=== PATIENT | female | born 1945 | race Caucasian/White ===

== ENCOUNTER 2021-03-25 10:28 | Outpatient (CLI) | payer OTHER, SELFPAY ==
--- NOTE | ~2021-03-25 | MR_ITS ---
EXAMINATION: MR knee LT wo con DATE: 03/25/2021 11:48 INDICATION: Left knee pain. TECHNIQUE: Magnetic resonance imaging (MRI) of the left knee was performed without intravenous contra st. Sequences included axial PD-weighted FS FSE, coronal PD-weighted FSE and PD-weighted FS FSE, sagi ttal PD-weighted FSE, and sagittal T2-weighted FS FSE. COMPARISON: Left knee radiographs 12/21/2020 FINDINGS: Medial compartment: There is a complex tear involving body and posterior horn of medial meniscus. There is full-thickness cartilage loss of tibial condyle involving the anterior, medial, and central articular surface with cortical remodeling and mild subchondral edema-like marrow signal intensity. There is full-thickness cartilage loss of femoral condyle involving the central and posterior articular surface with cortical remodeling and mild subchondral edema-like marrow signal intensity. Osteophytes are noted. Lateral compartment: Lateral meniscus is normal. There is shallow partial-thickness cartilage loss of tibial condyle invol ving the medial, lateral, and posterior articular surface. There is cartilage surface irregularity of femoral condyle. There are tiny marginal osteophytes. Patellofemoral compartment: There is deep partial thickness cartilage loss of patellar medial facet with mild subchondral edema-l saeed marrow signal intensity. There is cartilage surface irregularity of patellar lateral facet. There is partial-thickness cartilage loss of trochlea, deep at the central articular surface. Osteophytes are noted. Ligaments and tendons: The anterior and posterior cruciate ligaments are normal. Medial collateral ligament is normal. There are changes of prior sprain of fibular collateral ligament characterized by thickening and increased signal intensity. There is mild patellar tendinopathy. Fluid: There is a small knee joint effusion. 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 There is mild superficial patell ar bursitis. IMPRESSION: 1. Severe chondrosis of medial compartment, moderate chondrosis of patellofemoral compartment, and mi ld chondrosis of lateral compartment. 2. Tear of medial meniscus. 3. Small knee joint effusion. 4. Large Leigh's cyst. Reviewed, dictated and finalized at location A. IMPRESSION: 1. Severe chondrosis of medial compartment, moderate chondrosis of patellofemor al compartment, and mild chondrosis of lateral compartment. 2. Tear of medial meniscus. 3. Small knee joint effusion. 4. Large Leigh's cyst.
== END 2021-03-25 10:29 | disposition home or self-care (01) ==
LOC: ANHIMG 10:35
PROVIDERS: PCP Family Medicine; Visit Provider Orthopaedic Surgery
DX: M25.462 Effusion, left knee (principal); M71.22 Synovial cyst of popliteal space [Baker], left knee; S83.242A Other tear of medial meniscus, current injury, left knee, initial encounter; X58.XXXA Exposure to other specified factors, initial encounter
CPT/HCPCS: 73721

== ENCOUNTER 2021-05-02 09:58 | Outpatient (CLI) | payer OTHER, SELFPAY ==
[2021-05-02 11:18] LABS: Basophils Absolute Auto 0.1 K/mm3 (0.0-0.1); Eosinophils Absolute Auto 0.2 K/mm3 (0-0.3); Eosinophils Percent Auto 2.6 % (0-4.4); Hematocrit 38.8 % (37.0-47.0); Hemoglobin 13.1 g/dL (12.0-15.0); Immature Granulocyte Absolute 0.02 K/mm3 (0.00-0.031); Immature Granulocyte Percent A 0.3 % (0-0.5); Lymphocytes Percent Auto 26.3 % (18.3-44.2); Mean Corpuscular HGB Conc 33.8 g/dl (32-36); Mean Corpuscular Hemoglobin 31.1 pg (26-34); Mean Corpuscular Volume 92.2 fl (80-100); Mean Platelet Volume 9.9 fl (7.4-10.4); Monocytes Absolute Auto 0.5 K/mm3 (0.1-0.6); Monocytes Percent Auto 6.1 % (2.6-8.5); Neutrophils Absolute Auto 5.1 K/mm3 (1.3-6.7); Neutrophils Percent Auto 63.7 % (45.5-73.1); Platelet Count Result 326 k/mm3 (150-375); Red Blood Count 4.21 M/mm3 (4.2-5.4)
[2021-05-02 11:33] LABS: INR 0.9; Prothrombin Time 12.2 Seconds (11.1-14.7)
[2021-05-02 11:44] LABS: Anion Gap 6 mmol/L (8-16); Blood Urea Nitrogen 20 mg/dL (7-17); Calcium 9.2 mg/dL (8.4-10.2); Carbon Dioxide 32 mmol/L (22-30); Chloride 100 mmol/L (98-107); Estimated Glomerular Filt Rate > 60; Glucose 93 mg/dL (65-110); Potassium 3.7 mmol/L (3.4-5.0); Sodium 138 mmol/L (137-145)
== END 2021-05-02 09:59 | disposition home or self-care (01) ==
LOC: ANHSURGERY 10:00
PROVIDERS: Anesthesiology; PCP Family Medicine; Visit Provider Orthopaedic Surgery
DX: Z01.812 Encounter for preprocedural laboratory examination (principal); M17.12 Unilateral primary osteoarthritis, left knee; Z51.81 Encounter for therapeutic drug level monitoring; Z79.899 Other long term (current) drug therapy; N18.30 Chronic kidney disease, stage 3 unspecified
CPT/HCPCS: 36415; 80048; 85025; 85610; 85730; 86850; 86900; 86901; 87081

== ENCOUNTER 2021-06-01 08:34 | Outpatient (CLI) | payer OTHER, SELFPAY ==
--- NOTE | ~2021-06-01 | MR_ITS ---
EXAMINATION: MR lumbar spine wo con EXAM DATE: 06/01/2021 09:15 INDICATION: M54.16 - Radiculopathy, lumbar region . Right radiculopathy. TECHNIQUE: Multi-sequential, multiplanar MR images of the lumbar spine were obtained without contrast . Sagittal T1, T2, T2 fat saturation images. Axial T2 weighted images. Correlation is made to lumba r x-ray 04/18/2021. FINDINGS: There is mild lumbar levoscoliosis. There is moderate to severe disc disease from L1 throug h L5, moderate at L5-S1. There is 2-3 mm anterolisthesis L3 on L4 and L5 on S1. The conus medullaris terminates at the T12-L1 level and has normal signal intensity and morphology. Degenerative endplate signal changes mostly at L4-5. Paraspinal soft tissue is unremarkable. Level by level evaluation: T12-L1: Disc does not extend beyond the endplate margin. Facet arthropathy: Mild. Neural foraminal stenosis: No stenosis. Central canal stenosis: No stenosis. L1-L2: There is a moderate diffuse disc bulge. Facet arthropathy: Mild to moderate. Neural foraminal stenosis: Mild to moderate right, mild left. Central canal stenosis: Mild. L2-L3: There is a moderate diffuse disc bulge. Facet arthropathy: Moderate. Neural foraminal stenosis: Moderate to severe right, mild to moderate left. Central canal stenosis: Mild to moderate. L3-L4: There is a moderate to large diffuse disc bulge. Facet arthropathy: Severe. Ligamentum flavum enlargement. Neural foraminal stenosis: Moderate bilateral. Central canal stenosis: Severe. L4-L5: There is a moderate diffuse disc bulge asymmetric to the right Facet arthropathy: Moderate. Neural foraminal stenosis: Moderate to severe left, mild to moderate right. Central canal stenosis: Moderate. L5-S1: There is a moderate diffuse disc bulge. Facet arthropathy: Moderate. Neural foraminal stenosis: Mild to moderate left, mild right. Central canal stenosis: Mild. IMPRESSION: 1. L3-4 grade 1 anterolisthesis, severe central canal stenosis. 2. Neural foramen most narrowed on the right at L2-3 and on the left at L4-5. 3. Mild lumbar dextroscoliosis. Reviewed, dictated and finalized at location D.
== END 2021-06-01 08:35 | disposition home or self-care (01) ==
PROVIDERS: PCP Family Medicine; Visit Provider Orthopaedic Surgery
DX: M54.16 Radiculopathy, lumbar region (principal); M43.16 Spondylolisthesis, lumbar region; M41.86 Other forms of scoliosis, lumbar region
CPT/HCPCS: 72148

== ENCOUNTER 2021-06-12 13:15 | Outpatient (RCR) | payer OTHER, SELFPAY ==
--- NOTE | 2021-05-03 16:19 | PTOPEVAL ---
Thank you for referring Bushra Manzano to [facility].? The patient is scheduled to be seen for therapy? 2 x/week for 5 weeks. Please review, sign, date and return this plan of care MELLY. I agree with and certify that the following plan of care is medically necessary. Referring Physician Date Attending Provider: Dexter Lopez MD Diagnosis sciatica and OA of knee Onset 3 months Additional Evaluation Detail She is planned for left partial knee replacement . She is also referred to therapy due to back pain. MRI knee: Severe chondrosis of medial compartment, moderate chondrosis of patellofemoral compartment, and mild chondrosis of lateral compartment. 2. Tear of medial meniscus. 3. Small knee joint effusion. 4. Large Leigh's cyst. Subjective Information She reports severe back pain Query Text:As Reported By Patient/ which increases with sit<> Family stand motion. 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 Improved sypmtoms with longer walking. Reports pain starts in buttock and travels into post leg region. She uses ices for the pain. Left knee: Reports increased knee pain for 20 yrs. She had arthroscopic surgery x 2. Increased pain with single leg stance, negiating steps, squating, tranfers from all surfaces. She wears a brace on the left knee with walking. Diagnostic Tests X-Rays For This Problem Yes: degenerative scoliosis appreciated in the mid to lower lumbar spine. Moder Previous Treatments Previous Treatments For This Problem 5 yrs ago for knee Pain Assessment Self Report Pain Assessment Lower Back Reported Pain Level 0 Pain Description Heavy,Numbness,Radiating, Tingling Pain Radiation Right Arm Pain Frequency
--- NOTE | 2021-05-31 09:44 | PTOPEVAL ---
Physical Therapy Progress Note Thank you for referring Bushra Manzano to [facility] [place]Note 2[place]?She has attended 8 therapy visits to address his back. See summary below for progress with therapy. She is progressing towards therapy goals. The patient is scheduled to be seen for therapy? 2x/week for 4 weeks. Please review, sign, date and return this plan of care MELLY. I agree with and certify that the following plan of care is medically necessary. Referring Physician Date Attending Provider: Dexter Lopez MD Problem Diagnosis sciatica and OA of knee Onset 3 months Additional Evaluation Detail Her left partial knee replacement planned for has been cancelled 2x's due to issued with her back. She is to have a MRI on 06/01/21/ MRI knee: Severe chondrosis of medial compartment, moderate chondrosis of patellofemoral compartment, and mild chondrosis of lateral compartment. 2. Tear of medial meniscus. 3. Small knee joint effusion. 4. Large Leigh's cyst. Subjective Information Reports minor changes in her Query Text:As Reported By Patient/ ability to perform daily task. Family She is performing HEP 2x/day. She reports severe back pain in the morning with difficulty getting out of bed. Back cont to limit sit<>stand motion due to buttock and right leg/ foot pain. 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 Improved symptoms with longer walking. Reports pain starts in buttock and travels into post leg region. She wears a brace on the left knee with walking. Pain Assessment Self Report Pain Assessment Lower Back Reported Pain Level 0 Pain Description Heavy,Numbness,Radiating, Tingling Pain Frequency Chronic,Continuous Lowest Pain Intensity 0 Greatest Pain Intensity 10 Pain Aggravating Factors Bending,Exercise/Activity, Prolonged Position,Sitting Cervical and Lumbar ROM Lumbar ROM Lumbar
--- NOTE | 2021-06-13 11:41 | PCPTNOTE ---
Admitting Provider: Attending Provider: Dexter Lopez MD Patient:Bushra Manzano Date of :1945 Physical Therapy Discharge Note Patient has not returned for any further treatments since 06/12/2021 per her request due to following up with neurologist for her back. Therefore he will be discharged at this time. Patient?s initial visit was on 05/03/2021 09:30 and she had a total of 11 visits. The goals have been partially met at this time due to limited visits due to progression of her back symptoms. Thank you for referring this patient to [facility]. Please review, sign, date and return this discharge summary MELLY. I have been updated about the patient's current status and I agree with discharge from the above service at this time. Referring Physician Date
== END 2021-06-13 15:14 | disposition home or self-care (01) ==
LOC: ANHPT 13:15
PROVIDERS: PCP Family Medicine; Visit Provider Orthopaedic Surgery
DX: M47.816 Spondylosis without myelopathy or radiculopathy, lumbar region (principal)
CPT/HCPCS: 97014; 97110; 97140; 97162; 97530; G0283

== ENCOUNTER → 2021-07-23 11:27 | Outpatient (CLI) | payer OTHER, SELFPAY ==
--- NOTE | ~2021-07-23 | XR_ITS ---
EXAMINATION: XR chest 2V DATE: 07/23/2021 12:03 INDICATION: Personal history of nicotine dependence. TECHNIQUE: Frontal and lateral views of the chest were obtained. COMPARISON: Chest single view 10/30/2018 FINDINGS: The chest demonstrates clear lungs without pneumonia, pleural effusion, or pneumothorax. Th e heart size is normal. IMPRESSION: 1. No acute cardiopulmonary disease. Reviewed, dictated and finalized at location A. 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
== END ==
PROVIDERS: PCP Family Medicine; Visit Provider Family Medicine
DX: Z01.811 Encounter for preprocedural respiratory examination (principal); Z87.891 Personal history of nicotine dependence
CPT/HCPCS: 71046

== ENCOUNTER 2021-11-08 08:41 | Outpatient (CLI) | payer OTHER, SELFPAY ==
[2021-11-08 10:30] LABS: Basophils Absolute Auto 0.1 K/mm3 (0.0-0.1); Eosinophils Absolute Auto 0.2 K/mm3 (0-0.3); Eosinophils Percent Auto 2.5 % (0-4.4); Hematocrit 39.7 % (37.0-47.0); Hemoglobin 13.6 g/dL (12.0-15.0); Immature Granulocyte Absolute 0.01 K/mm3 (0.00-0.031); Immature Granulocyte Percent A 0.1 % (0-0.5); Lymphocytes Absolute Auto 1.88 K/mm3 (0.9-3.2); Lymphocytes Percent Auto 26.6 % (18.3-44.2); Mean Corpuscular HGB Conc 34.3 g/dl (32-36); Mean Corpuscular Volume 93.4 fl (80-100); Mean Platelet Volume 9.7 fl (7.4-10.4); Monocytes Absolute Auto 0.5 K/mm3 (0.1-0.6); Monocytes Percent Auto 6.7 % (2.6-8.5); Neutrophils Absolute Auto 4.5 K/mm3 (1.3-6.7); Neutrophils Percent Auto 63.1 % (45.5-73.1); Platelet Count Result 375 k/mm3 (150-375); Red Blood Count 4.25 M/mm3 (4.2-5.4); White Blood Count 7.1 K/mm3 (4.5-10.0)
[2021-11-08 10:43] LABS: Prothrombin Time 12.7 Seconds (11.1-14.7)
[2021-11-08 10:44] LABS: Partial Thromboplastin Time 25.8 SECONDS (22.3-36.8)
== END 2021-11-08 08:42 | disposition home or self-care (01) ==
PROVIDERS: Anesthesiology; PCP Family Medicine; Visit Provider Orthopaedic Surgery
DX: Z01.812 Encounter for preprocedural laboratory examination (principal); M17.12 Unilateral primary osteoarthritis, left knee; N18.30 Chronic kidney disease, stage 3 unspecified; Z51.81 Encounter for therapeutic drug level monitoring; Z79.899 Other long term (current) drug therapy
CPT/HCPCS: 36415; 85025; 85610; 85730; 86850; 86900; 86901; 87081

== ENCOUNTER 2021-11-13 00:46 | Day surgery (SDC) | payer OTHER, SELFPAY ==
--- NOTE | 2021-11-08 08:44 | PC.NURSE ---
Report to the Outpatient Waiting Room, entrance under the green pavilion located off [facility], at time _0630_ on date _11/13/21_. OR Time: _0830_. - You and your visitor will be asked a series of questions to screen for COVID 19 for your protection. - A mask is required within the hospital. One visitor will be allowed to accompany the patient into the hospital. Patients visitor will be instructed to remain with patient at all times or leave the building. VISITING HOURS 10AM-7PM, USE MAIN ENTRANCE - ONE VISITOR ONE TIME A DAY Preoperative COVID Testing Requirements: NONE Patients may have clear liquids (water, carbonated beverages, clear teas, apple juice) until 3 hours prior to surgery (0530 AM) with a maximum of 20 ounces. - No food from midnight until time of surgery Take the following medications with a SIP of water the morning of surgery: _TYLENOL IF NEEDED_ Medications to discontinue per ANESTHESIA - ALL VITAMINS AND HERBAL SUPPLEMENTS, 3 DAYS PRIOR TO SURGERY -Date to take last dose on 11/09/21 Please no make-up, nail georgian, hairspray, perfume, deodorant, or body powder the day of surgery. No jewelry (including any body piercings) or valuables the day of surgery, leave them at home. Please take a shower or bath the night before, or the morning of, surgery with an antibacterial soap. Wear comfortable, loose fitting clothing. - Jewelry must be removed prior to entering the operating room. Rings and piercings that are not removed may be cut off. - The hospital will not accept responsibility for valuables. - Please leave all valuables, including medications, at home the day of surgery. If you are going home after surgery, a licensed armored car driver must drive you home. - NO public transportation without another adult. - We recommend that an adult stay with you for 24 hours following discharge. - We also recommend that you do not drive, make important decision, drink alcoholic beverages, or take any drugs that were not prescribed by your health care provider for at least 24 hours after your discharge time. Follow any additional instructions given to you from DR. BARCLAY Instructions given to ____PT and asked if any additional questions and then verbalized understanding. Patient advised to call surgeon office or pre surgery nurse liaisonSABINE [phone] if any additional questions.
[2021-11-08 09:15] VITALS: BP 142/70; PULSE 74; RESP 18; TEMP 36.6; O2SAT 98; BMI 24.9
--- NOTE | 2021-11-12 15:22 | WPDANESEPPF ---
Anes - Initial Pre Proc Eval Procedure: Operation Date: 11/13/21 07:30 Proposed Procedures p Left Unicompartmental Knee Arthroplasty - Dexter Lopez MD Date/Time: 11/12/21 15:22 Surgeon: Dexter Lopez MD Pre Op Diagnosis: left knee oa Patient Data Age: 76 Gender: F Height: 1.68 m Weight: 70.1 kg Last Vital Signs Temp 36.6 C 11/08/21 09:15 Pulse 74 11/08/21 09:15 Resp 18 11/08/21 09:15 BP 142/70 H 11/08/21 09:15 Pulse Ox 98 11/08/21 09:15 Allergies Allergy/AdvReac Type Severity Reaction Status Date / Time latex Allergy Intermediate Rash Verified 11/13/21 06:12 Home Medications Medication Instructions Recorded Confirmed Type aspirin 81 mg tablet,delayed 81 mg PO HS 08/09/19 11/13/21 History release ferrous sulfate 134 mg (27 mg 134 mg PO QAM 08/09/19 11/13/21 History iron) tablet vit C 250 mg-vit E 90 mg-zinc 40 1 tablet PO BID cap 08/09/19 11/13/21 History mg-copper 1 pw-rzsvsx-yubsfy capsule vitamin E 200 unit capsule 200 unit PO QAM 12/21/20 11/13/21 History mirabegron 25 mg tablet,extended 25 mg PO QAM 04/25/21 11/13/21 History release 24 hr ascorbic acid (vitamin C) [Vitamin 1 g PO QAM 05/02/21 11/13/21 History C] calcium 600 mg PO QAM 05/02/21 11/13/21 History omega-3 fatty acids-vitamin E 1 cap QAM 05/02/21 11/13/21 History [Fish Oil] acetaminophen [Tylenol Ex Str 1,000 mg PO BID PRN 05/25/21 11/13/21 History Arthritis Pain] omeprazole 20 mg capsule,delayed 20 mg PO QAM 11/06/21 11/13/21 History release hydrochlorothiazide 25 mg PO QAM 11/08/21 11/13/21 History pravastatin 40 mg PO QAM 11/08/21 11/13/21 History tolterodine 2 mg PO QAM 11/08/21 11/13/21 History Patient hx anesthesia problems: none Family hx anesthesia problems: none Results Review: All pre-operative results and documents have been reviewed as part of the pre-operative evaluation. [facility] Past Medical History Medical History (Updated 11/12/21 @ 15:23 by Taj Reich MD) Allergies Arthritis Arthritis, lumbar spine Cataract Chronic kidney disease, stage 3 (moderate) Degenerative arthritis of knee, bilateral HTN (hypertension) IBS (irritable bowel syndrome) Mixed hyperlipidemia Osteoarthritis of left knee Surgical History Surgical History H/O arthroscopic knee surgery left knee, Dr. Lopez , 2008 History of appendectomy History of cholecystectomy Family History Family History Mother Family history of Alzheimer's disease Father Family history of heart disease in male family member before age 55 Other Family history of cardiovascular disease Hypertension Social History Social History Smoking packs per day: 0.5 Smoking cigarettes per day: 10.0 Years smoked: 3 Smoking pack-years: 1.50 Smoking status: Former smoker Tobacco type: cigarettes Second hand tobacco smoke exposure: No Smoking end date: 08/18/1965 Additional smoking assessment comments: PT STATES QUITTING 1965 OR COUPLE YEARS PRIOR TO Alcohol intake: never Substance use: never Substance use type: does not use Living arrangements: alone Additional living arrangements comments: lives at [facility] 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
--- NOTE | 2021-11-12 15:24 | WPDANESPNB ---
Anes - Peripheral Nerve Block Date/Time: 11/12/21 15:24 I have discussed with the patient/family/POA the placement of a peripheral nerve block for post-operative pain management, including associated risks, benefits, complications, and side effects. Alternative methods of post-operative analgesia were detailed. Questions were solicited and answers provided to the satisfaction of the patient/family/POA. Time-Out: A pre-procedural Time-Out was completed immediately before starting the procedure and confirmed: Patient Identification, Site, Procedure, Patient Position and the Availability of Requisite Equipment. Clinical Indications: Acute post-operative pain management requested by the operative surgeon. Nerve Block Insertion Note Anes-nerve block: adductor canal left Patient position: supine Skin prep: chlorhexidine Needle: 22 gauge, stimulating, insulated echogenic needle. Needle length: 80 mm Technique: ultrasound Technique comment: in plane Injectate: bupivacaine 0.5% with epi 5 mcg/ml (30cc) Observations: tolerated well Complications: none Procedure start time:: 725 Procedure end time:: 730
[2021-11-13] VITALS (10 sets, daily range): BP systolic 110–157; BP diastolic 57–83; PULSE 66–84; RESP 10–20; TEMP 36–37.4; O2SAT 95–100
--- NOTE | ~2021-11-13 | XR_ITS ---
EXAMINATION: KNEE ONE/TWO VIEW-RIGHT DATE: 11/13/2021 10:23 INDICATION: Postoperative evaluation following left knee medial unicompartmental arthroplasty TECHNIQUE: Anteroposterior and lateral views of the left knee were obtained. COMPARISON: 12/23/2020 FINDINGS: Left knee medial unicompartmental arthroplasty appears well seated and in near anatomic alignment. N o fractures identified. Expected postoperative subcutaneous and intra-articular gas. IMPRESSION: 1. Left knee medial unicompartmental arthroplasty, negative for postoperative purposes. Reviewed, dictated and finalized at location A. IMPRESSION: 1. Left knee medial unicompartmental arthroplasty, negative for postoperative p urposes.
[2021-11-13] MEDS: ACETAMINOPHEN 500 MG TABLET 1000 MG PO (06:25)
--- NOTE | 2021-11-13 07:10 | WPDHPUPDATE1 ---
History and Physical Update Update Date/Time: 11/13/21 07:10 History and Physical has been reviewed, including an updated exam of the patient. There are NO changes in the patient's condition. Risks, benefits, and alternatives have been discussed and questions answered. Patient agrees to proceed with procedure.
[2021-11-13] MEDS: LACTATED RINGERS 1,000 ML 30 ML IV CONT ×2 (07:12→10:10)
[2021-11-13] MEDS: TRANEXAMIC ACID 1,000MG/ISO100 1,000 MG/100 ML BAG 200 MG IVPB (07:13)
[2021-11-13] MEDS: ceFAZolin 2 GM/D5W 50 ML 2 GM/50 ML BAG IVPB (07:33)
--- NOTE | 2021-11-13 09:52 | W.PM.PROC2 ---
Procedure Note - Detailed Date of Procedure 11/13/21 Pre-op Diagnosis left knee oa Post-op Diagnosis Same Procedure Performed Left knee unicompartmental replacement Surgeon Dexter Lopez MD Hydrochloric Manufacturing Supervisor Ramon Hui Anesthesia General and Regional Description of Procedure The patient was identified and the proper site identified. In the preop holding area the anesthesia team performed a left lower extremity block. She was then taken to the operating room and transferred to the OR table placing her supine taking care to pad his torso and extremities. After general anesthetic induction and intubation. a nonsterile tourniquet was placed high on the left thigh. The extremity was positioned, prepped, and draped in the usual sterile fashion. The extremity was exsanguinated and the tourniquet was inflated to 300 mmHg remaining up for approximately 60 minutes. An anterior midline incision was made and sharp dissection carried down through the subcutaneous tissue to the extensor mechanism. A modified medial parapatellar arthrotomy was performed. The articular and meniscal cartilage of the lateral compartment was inspected and noted to be in excellent shape. Anterior and posterior cruciate ligaments were in continuity. There were extensive degenerative changes medial compartment and milder patellofemoral changes. The marginal osteophytes were removed from the notch and the medial aspect of the medial femoral condyle, and the remaining meniscal tissue was removed. The femur was sized to a small. With the appropriate spoon and tibial guide, a tibial resection was made. This was sized to AA. Using the mill, the flexion and extension gaps were balanced. A trial reduction was undertaken. The range of motion of the knee was noted to be from full extension to 120 ? of flexion with excellent stability through range of motion. The polyethylene insert tracked nicely. The trial components were removed. The real small femur and size AA tray for the left knee were cemented into place. The knee was held in about 30? of flexion while the cement cured. The tourniquet was released and excess cement was removed from the joint. Hemostasis was carried out. The knee was flushed with a copious amount of irrigation. After trialing, the appropriate real size 5 insert for the femoral component was inserted and the stability again assessed. The knee was noted to be stable as it was taken through range of motion. The periarticular tissues were injected with 60 milliliters of arthroplasty solution. The extensor mechanism was repaired with two Vicryl and 0 looped PDS suture, the subcu with 3-0 Monocryl, 2-0 Quill and tissue adhesive for the skin. A sterile dressing was applied. The patient tolerated the procedure well, was awakened, extubated, and taken to recovery room in stable condition. Estimated Blood Loss 100 Tourniquet Time 60 Drains No Packing No Pathology None sent Complications No immediate complications Condition Stable Disposition PACU
--- NOTE | 2021-11-13 11:51 | ADMGEN ---
This patient, Bushra Manzano, was admitted to 2 Medical Room 253-01. Patient/family oriented to hospital policies and general routines including ID bracelet, bed and alarms, visiting hours, pain management, procedures, bathroom and other care routines, personal items, smoking policy, room service/diet, and visiting hours. Report received from Licha in PACU. Information on how to activate the Rapid Response Team has been discussed. Patient/Family are encouraged to report perceived risks to care and to ask questions if they do not understand what they are told or what they should do.
[2021-11-13] MEDS: SODIUM CHLORIDE 0.9% IV 1,000 ML 125 ML IV CONT (12:07)
[2021-11-13] MEDS: HYDROcodone/acetaminophen (*CRX) 7.5-325 MG TABLET 1 TAB PO ×3 (13:02→20:27)
[2021-11-13] MEDS: SENNA/DOCUSATE SODIUM TABLET 2 TAB PO (16:49)
[2021-11-13] MEDS: OPTI-GEN TAB 1 TABLET PO (16:49)
[2021-11-13] MEDS: CELECOXIB 200 MG CAPSULE PO (16:49)
[2021-11-13] MEDS: FAMOTIDINE 20 MG TABLET PO (20:27)
[2021-11-14 00:22] VITALS: BP 120/67; PULSE 64; RESP 16; TEMP 37; O2SAT 96
[2021-11-14] MEDS: HYDROcodone/acetaminophen (*CRX) 7.5-325 MG TABLET 1 TAB PO ×4 (00:35→12:21)
[2021-11-14 04:12] VITALS: BP 115/64; PULSE 63; RESP 16; TEMP 36.6; O2SAT 97
--- NOTE | 2021-11-14 08:05 | PM.DS ---
DS: Admitting Diagnosis Discharge Date November 14, 2021 Admitting Diagnosis Left knee osteoarthritis DS: Discharge Diagnosis Discharge Diagnosis (1) Status post left unicompartmental knee replacement: Code(s): Z96.652 - Presence of left artificial knee joint Status: Acute Assessment and Plan: 76-year-old female postop day 1 after unicompartmental knee replacement by Dr. Lopez. She is having most of her pain in the back of the knee on examination this morning. Otherwise, she is doing very well. Plan for her to receive therapy prior to discharge today. She has a follow-up appointment scheduled in 2 weeks for wound check. She will be given a prescription for oxycodone for pain relief and Zofran for nausea. She will be on 2 weeks of Xarelto for DVT prophylaxis. She has this prescription already. She will also take scheduled Tylenol for pain. DS: Summary Hospital Course Reason for hospitalization: Observation after outpatient procedure Hospital Course: 76-year-old female with left knee osteoarthritis underwent unicompartmental knee replacement by Dr. Lopez. After this procedure she was admitted for observation. Unremarkable overnight stay. The incision site is clean and dry on exam this morning. She will receive therapy prior to discharge today. Status at Discharge Functional status at discharge: uses cane/walker Overall status at discharge: patient is progressing back to baseline Time Spent with Patient Time attestation: Total time spent providing and/or coordinating discharge services: Time spent: Less than 30 minutes Exam Const: General: comfortable and no acute distress Eyes: General: appearance normal, both eyes and all related structures Resp: Effort & Inspection: normal respiratory effort GI: Inspection: non-distended GI Palp: No Tenderness to palpation present (GI) Neuro: Sensory Exam: normal sensation Extrem: Other: Exam of the left knee shows a clean and dry surgical dressing. She is able to wiggle her toes and foot without difficulty. She denies any numbness down the leg. With some exertion, she is able to fully extend the knee to 0? extension. Neurovascular status unremarkable. Calves negative. Psych: Mental Status: mental status grossly normal Discharge Plan Discharge Patient Disposition: Home, Self-Care Discharge Instructions: 3 times daily for 20 minutes each time, reclining in bed with ice packs over the incision and a pillow underneath the calf of the affected leg, not under the knee. Your wound is glued so it is okay to get into the shower and get the wound wet in two days. Be sure to get up and move around several times daily but do not overdue it. Remember to maintain your 50% weight-bearing status for 6 weeks with a walker. Be sure to read through all the information that came from my office and the hospital. Most of the answers you will need can be found in that material. Call the office with any questions that you cannot find answers to, or concerns you may have. You have a prescription of Xarelto for 14 days. If you do not have this please call our office immediately. After the Xarelto is completed, start taking one coated 325 mg aspirin daily and do this for four more weeks. Take the arthritis formula Tylenol 650 mg tablet on an 8 hour schedule. A good 8 hour schedule is: 6:00 AM, 2:00 PM, and 10:00 PM. You may take the prescribed pain medication along with the Tylenol; it is not to be taken instead of the tylenol. I would like for you to take the Tylenol on a schedule for 2-3 weeks. Once the Xarelto is completed, if you wish to supplement your pain regimen with prua-gna-fovhzue anti-inflammatory such as Advil or Aleve, that is fine. Follow the label instructions. Do not take this medication if you have an allergy to NSAIDS. Please call [facility] at as soon as possible to verify follow up appointment to be seen in 2 weeks. Also, call the office with any or
[2021-11-14] MEDS: PRAVASTATIN SODIUM 20 MG TABLET 40 MG PO (08:38)
[2021-11-14] MEDS: VITAMIN E 100 UNIT CAPSULE 200 UNIT PO (08:38)
[2021-11-14] MEDS: ASCORBIC ACID 500 MG TABLET 1000 MG PO (08:39)
[2021-11-14] MEDS: SENNA/DOCUSATE SODIUM TABLET 2 TAB PO (08:39)
[2021-11-14] MEDS: RIVAROXABAN 10 MG TABLET PO (08:39)
[2021-11-14] MEDS: FAMOTIDINE 20 MG TABLET PO (08:39)
[2021-11-14] MEDS: CELECOXIB 200 MG CAPSULE PO (08:39)
[2021-11-14] MEDS: polyethylene glycoL 3350 17 GM POWD.PACK PO (08:39)
[2021-11-14] MEDS: MIRABEGRON 25 MG ER TABLET PO (08:39)
[2021-11-14] MEDS: CALCIUM CARBONATE (OSCAL) 500 MG TABLET PO (08:39)
[2021-11-14] MEDS: PANTOPRAZOLE 40 MG TABLET PO (08:39)
[2021-11-14] MEDS: OPTI-GEN TAB 1 TABLET PO (08:40)
[2021-11-14] MEDS: hydroCHLOROthiazide 25 MG TABLET PO (08:40)
[2021-11-14] MEDS: FERROUS SULFATE DRIED 142 MG TABCR PO (12:21)
[2021-11-14 14:00] VITALS: BP 106/87; PULSE 77; RESP 18; TEMP 37; O2SAT 98
== END 2021-11-14 14:55 | disposition home or self-care (01) ==
LOC: ANHSURGERY 05:54 → ANH2MED 11:30
PROVIDERS: PCP Family Medicine; Visit Provider Orthopaedic Surgery
PROC: (CPT 27446; principal; 2021-11-13 07:30)
DX: M17.12 Unilateral primary osteoarthritis, left knee (principal); G89.18 Other acute postprocedural pain; I12.9 Hypertensive chronic kidney disease with stage 1 through stage 4 chronic kidney disease, or unspecified chronic kidney disease; N18.30 Chronic kidney disease, stage 3 unspecified; E78.2 Mixed hyperlipidemia; K58.9 Irritable bowel syndrome, unspecified; Z79.82 Long term (current) use of aspirin; Z87.891 Personal history of nicotine dependence
CPT/HCPCS: 27446; 64447; 36415; 73560; 85025; 85610; 85730; 86850; 86900; 86901; 87081; 97110; 97116; 97161; 97165; 97530; 97535; A9270; C1713; C1776; J0171; J0690; J1100; J1170; J2250; J2270; J2370; J2405; J2704; J2795; J3010; J7030; J7120

== ENCOUNTER 2022-01-17 12:10 | Observation (INO) | payer OTHER, SELFPAY ==
--- NOTE | 2022-01-15 14:20 | PC.NURSE ---
Report to the Outpatient Waiting Room, entrance under the green pavilion located off [facility], at time __1200 on date _01/16/22 . OR Time: __1400 . - You and your visitor will be asked a series of questions to screen for COVID 19 for your protection. - Only one visitor is allowed at this time. - The patient visitor is requested to leave or wait in car when not with patient. - A mask is required within the hospital. Patients may have clear liquids (water, carbonated beverages, clear teas, apple juice) until 3 hours prior to surgery with a maximum of 20 ounces. - No food from midnight until time of surgery - Infants may have breast milk until 4 hours before surgery, infant formula 6 hours prior to surgery. - Children will be allowed to drink immediately following surgery. If applicable, please bring a bottle or sippy cup to assist with drinking. Juice, water, soda, and popsicles are readily available. For infants on formula, please bring formula the day of surgery. Pacifiers are allowed. Take the following medications with a SIP of water the morning of surgery: NONE Medications to discontinue per physician NONE Date to take last dose Please no make-up, nail luxembourgish, hairspray, perfume, deodorant, or body powder the day of surgery. No jewelry (including any body piercings) or valuables the day of surgery, leave them at home. Please take a shower or bath the night before, or the morning of, surgery with an antibacterial soap. Wear comfortable, loose fitting clothing. Children are encouraged to wear pajamas. - Jewelry must be removed prior to entering the operating room. Rings and piercings that are not removed may be cut off. - The hospital will not accept responsibility for valuables. - Please leave all valuables, including medications, at home the day of surgery. If you are going home after surgery, a licensed laundry route driver must drive you home. - NO public transportation without another adult. - We recommend that an adult stay with you for 24 hours following discharge. - We also recommend that you do not drive, make important decision, drink alcoholic beverages, or take any drugs that were not prescribed by your health care provider for at least 24 hours after your discharge time. For Pediatric surgeries, we recommend two adults accompany the child home (only one inside the building at this time). Follow any additional instructions given to you from your surgeon. If you or anyone in your household have experienced Covid symptoms in the past week, please notify your surgeon or the nurse liaison at the phone number below for possible testing. Telephone instructions given to __PATIENT and asked if any additional questions and then verbalized understanding. Patient advised to call surgeon office or pre surgery nurse liaison [phone] if any additional questions.
[2022-01-15 14:25] VITALS: BMI 23.6
[2022-01-16] VITALS (13 sets, daily range): BP systolic 120–143; BP diastolic 60–75; PULSE 67–87; RESP 10–19; TEMP 36.4–36.6; O2SAT 95–100; BMI 23.8
--- NOTE | 2022-01-16 12:51 | WPDANESEPPF ---
Anes - Initial Pre Proc Eval Procedure: Operation Date: 01/16/22 14:00 Proposed Procedures p Debridement and Closure Left Knee Wound, Possible Wound Vac - Dexter Lopez MD Date/Time: 01/16/22 12:51 Surgeon: Dexter Lopez MD Pre Op Diagnosis: left knee wound, eschar Patient Data Age: 77 Gender: F Height: 1.68 m Weight: 66.25 kg Allergies Allergy/AdvReac Type Severity Reaction Status Date / Time latex Allergy Intermediate Rash Verified 01/16/22 12:45 Home Medications Medication Instructions Recorded Confirmed Type aspirin 81 mg tablet,delayed 81 mg PO HS 08/09/19 01/16/22 History release ferrous sulfate 134 mg (27 mg 134 mg PO QAM 08/09/19 01/16/22 History iron) tablet (High Potency Iron) vit C 250 mg-vit E 90 mg-zinc 40 1 tablet PO BID 08/09/19 01/16/22 History mg-copper 1 kb-[id number]-ispqso capsule (PreserVision AREDS-2) vitamin E 200 unit capsule 200 unit PO QAM 12/21/20 01/16/22 History mirabegron 25 mg tablet,extended 25 mg PO QAM 04/25/21 01/16/22 History release 24 hr (Myrbetriq) ascorbic acid (vitamin C) 1,000 mg 1 g PO QAM 05/02/21 01/16/22 History tablet (Vitamin C) calcium 600 mg capsule 600 mg PO QAM 05/02/21 01/16/22 History omega-3 fatty acids-vitamin E 1 cap QAM 05/02/21 01/16/22 History 1,000 mg capsule acetaminophen 500 mg tablet 1,000 mg PO Q8H PRN Pain 05/25/21 01/16/22 History omeprazole 20 mg capsule,delayed 20 mg PO QAM 11/06/21 01/16/22 History release hydrochlorothiazide 25 mg tablet 25 mg PO QAM 11/08/21 01/16/22 History pravastatin 40 mg tablet 40 mg PO QAM 11/08/21 01/16/22 History tolterodine 2 mg capsule,extended 2 mg PO QAM 11/08/21 01/16/22 History release 24 hr aspirin 325 mg tablet 325 mg PO DAILY 12/06/21 01/16/22 History Patient hx anesthesia problems: none Family hx anesthesia problems: none Results Review: All pre-operative results and documents have been reviewed as part of the pre-operative evaluation. [facility] Past Medical History Medical History Allergies Arthritis Arthritis, lumbar spine Cataract Chronic kidney disease, stage 3 (moderate) Degenerative arthritis of knee, bilateral HTN (hypertension) IBS (irritable bowel syndrome) Mixed hyperlipidemia Osteoarthritis of left knee Surgical History Surgical History H/O arthroscopic knee surgery left knee, Dr. Lopez , 2008 History of appendectomy History of cholecystectomy S/P laminectomy L3-L4 Family History Family History Mother Family history of Alzheimer's disease Father Family history of heart disease in male family member before age 55 Other Family history of cardiovascular disease Hypertension Social History Social History Smoking packs per day: 0.5 Smoking cigarettes per day: 10.0 Years smoked: 4 Smoking pack-years: 2.00 Smoking status: Former smoker Tobacco type: cigarettes Second hand tobacco smoke exposure: No Smoking end date: 08/18/65 Additional smoking assessment comments: PT STATES QUITTING 1966 OR COUPLE YEARS PRIOR TO Alcohol intake: never Substance use: never Substance use type: does not use Living arrangements: alone Additional living arrangements comments: lives at [facility] 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
[2022-01-16 13:26] LABS: Hematocrit 37.5 % (37.0-47.0); Hemoglobin 12.7 g/dL (12.0-15.0)
[2022-01-16] MEDS: LACTATED RINGERS 1,000 ML 30 ML IV CONT (13:33)
[2022-01-16] MEDS: KETOROLAC 15 MG/ML VIAL (*BKC) IV PUSH (13:36)
[2022-01-16] MEDS: SCOPOLAMINE 1.5 MG PATCH TRANSDERM (13:36)
[2022-01-16] MEDS: ACETAMINOPHEN 500 MG TABLET 1000 MG PO (13:36)
[2022-01-16 13:37] LABS: Anion Gap 8 mmol/L (8-16); Blood Urea Nitrogen 25 mg/dL (7-17); Calcium 9.3 mg/dL (8.4-10.2); Carbon Dioxide 28 mmol/L (22-30); Chloride 99 mmol/L (98-107); Estimated CRCL calculation 47 ml/min; Estimated Glomerular Filt Rate > 60; Glucose 94 mg/dL (65-110); Potassium 3.2 mmol/L (3.4-5.0); Sodium 135 mmol/L (137-145)
[2022-01-16 13:40] LABS: Prothrombin Time 12.9 Seconds (11.1-14.7)
[2022-01-16 13:41] LABS: Partial Thromboplastin Time 27.3 SECONDS (22.3-36.8)
--- NOTE | 2022-01-16 13:47 | SUR.PREOP ---
SHAVE NOT DONE, PT HAS ABDULLAHI WRAP ON LT KNEE WOUND. PT STATES WOUND IS BLEEDING.
--- NOTE | 2022-01-16 13:56 | SUR.PREOP ---
SPOKE WITH DR BARCLAY REGARDING SHAVE, NO SHAVE NEEDED
--- NOTE | 2022-01-16 13:58 | WPDHPUPDATE1 ---
History and Physical Update Update Date/Time: 01/16/22 13:58 History and Physical has been reviewed, including an updated exam of the patient. There are NO changes in the patient's condition. Risks, benefits, and alternatives have been discussed and questions answered. Patient agrees to proceed with procedure.
[2022-01-16] MEDS: ceFAZolin 2 GM/D5W 50 ML 2 GM/50 ML BAG IVPB ×2 (14:02→22:14)
--- NOTE | 2022-01-16 15:22 | P.OP_ITS ---
Procedure Note - Detailed Date of Procedure 01/16/22 Pre-op Diagnosis left knee wound, eschar Post-op Diagnosis Same Procedure Performed Debridement eschar left knee wound with application of wound VAC Surgeon Dexter Lopez MD [employer] Description of Procedure The patient was identified and proper site identified. She was taken back to the operating room transferring her to the or table placing her supine taking care to pad her torso and extremities. After general anesthetic induction and intubation a nonsterile tourniquet was placed high on her left thigh. Left lower extremity was prepped and draped in usual sterile fashion. Extremity was exsanguinated and the tourniquet was inflated to 250 millimeters of mercury remaining up for about 9 minutes. The eschar was excised. The original scar was used to extend the incision proximally allowing for access to the entire subcutaneous space. There was no communication with the knee joint proper. Curette was used to remove any devitalized tissue from within the wound. It was also scrubbed with a dilute Betadine solution and a sterile scrub sponge. The edges of the eschar were freshened up. The tourniquet was released. There was quite a bit of healthy bleeding tissue throughout the wound. The wound was irrigated with sterile saline solution. The proximal aspect of the wound which had been extended was reapproximated with 3-0 nylon suture. The wound VAC was applied with the help of the wound care nurse and that hooked up to the suction device. She tolerated the procedure well. She was awakened, extubated taken to recovery area in stable condition. There were no known intraoperative complications. Estimated blood loss 5 milliliters. She received perioperative antibiotics. Tourniquet Time 9 Packing Yes (Wound VAC) Complications No immediate complications Disposition PACU
[2022-01-16] MEDS: SENNA/DOCUSATE SODIUM TABLET 2 TAB PO (18:22)
[2022-01-16] MEDS: KETOROLAC 15 MG/ML VIAL (*BKC) IM (18:23)
[2022-01-16] MEDS: OPTI-GEN TAB 1 TABLET PO (18:23)
--- NOTE | 2022-01-16 19:02 | ADMGEN ---
This patient, Bushra Manzano, was admitted to Medical Room 246-. Patient/family oriented to hospital policies and general routines including ID bracelet, bed and alarms, visiting hours, pain management, procedures, bathroom and other care routines, personal items, smoking policy, room service/diet, and visiting hours. Information on how to activate the Rapid Response Team has been discussed. Patient/Family are encouraged to report perceived risks to care and to ask questions if they do not understand what they are told or what they should do.
[2022-01-17] VITALS (7 sets, daily range): BP systolic 102–134; BP diastolic 51–67; PULSE 68–78; RESP 16–18; TEMP 36.3–36.8; O2SAT 95–100
[2022-01-17] MEDS: KETOROLAC 15 MG/ML VIAL (*BKC) IM ×2 (00:58→05:52)
[2022-01-17] MEDS: ceFAZolin 2 GM/D5W 50 ML 2 GM/50 ML BAG IVPB ×2 (05:52→13:19)
[2022-01-17] MEDS: VITAMIN E 100 UNIT CAPSULE 200 UNIT PO (08:28)
[2022-01-17] MEDS: PRAVASTATIN SODIUM 20 MG TABLET 40 MG PO (08:28)
[2022-01-17] MEDS: CALCIUM CARBONATE (OSCAL) 500 MG TABLET PO (08:28)
[2022-01-17] MEDS: ASPIRIN 325 MG TABLET PO (08:28)
[2022-01-17] MEDS: OMEGA 3 POLYUNSAT FATTY ACIDS 1 GM CAP PO (08:29)
[2022-01-17] MEDS: MIRABEGRON 25 MG ER TABLET PO (08:29)
[2022-01-17] MEDS: polyethylene glycoL 3350 17 GM POWD.PACK PO (08:29)
[2022-01-17] MEDS: PANTOPRAZOLE 40 MG TABLET PO (08:29)
[2022-01-17] MEDS: SENNA/DOCUSATE SODIUM TABLET 2 TAB PO ×2 (08:29→17:08)
[2022-01-17] MEDS: OPTI-GEN TAB 1 TABLET PO ×2 (08:29→17:09)
[2022-01-17] MEDS: ASCORBIC ACID 500 MG TABLET 1000 MG PO (08:29)
[2022-01-17] MEDS: hydroCHLOROthiazide 25 MG TABLET PO (08:29)
--- NOTE | 2022-01-17 10:47 | PCNSR ---
On 01/17/22, the student, Charley Tran, provided care and completed [facility] documentation on this patient. I have reviewed the student's documentation and agree with the findings.
--- NOTE | 2022-01-17 12:42 | PM.PNORT ---
Progress Note: A&P Assessment and Plan (1) Eschar of lower leg: Code(s): R23.4 - Changes in skin texture Status: Acute Plan Plan to mobilize the patient today. Will be going home with home health tomorrow. Wound VAC will be changed by the wound care nurses tomorrow. Proximal sutures can be removed by Home Health in two weeks. Plan Keflex for two weeks. Aspirin for DVT prophylaxis. Time Spent With Patient Time with patient: 15 - 25 minutes Subjective Subjective Date/Time Seen: 01/17/22 12:42 Post Op day: 1 Principal diagnosis: Status post left knee wound debridement Interval history: 69-year-old female postop day one status post left knee wound debridement and placement wound VAC. Doing very well. Quite comfortable. Exam Const: General: cooperative, no acute distress and alert Nutritional Appearance: other Orientation/consciousness: patient oriented x3 Limitations: no limitations Extrem: Other: Exam of the left knee shows wound VAC sealed up nicely. No erythema around the wound. Proximal wound edges well apposed. Neurovascular status left lower extremity intact. Calves negative. Psych: Appearance: grossly normal Mental Status: mental status grossly normal Objective Data Vital Signs Vital Signs: Vital Signs - 24 hr 01/16/22 12:53 01/16/22 15:11 01/16/22 15:25 Temperature 97.8 F 97.5 F L Pulse Rate 87 71 67 Respiratory Rate 18 12 13 Blood Pressure 143/75 H 120/66 127/71 Pulse Oximetry 99 100 100 Oxygen Delivery Room Air Simple Face Mask Simple Face Mask Oxygen Flow Rate 8 8 01/16/22 15:40 01/16/22 15:55 01/16/22 16:10 Temperature Pulse Rate 70 71 70 Respiratory Rate 11 L 19 11 L Blood Pressure 143/69 H 130/71 131/68 Pulse Oximetry 100 99 100 Oxygen Delivery Simple Face Mask Room Air Room Air Oxygen Flow Rate 8 01/16/22 16:25 01/16/22 16:35 01/16/22 16:50 Temperature 98 F 97.5 F L Pulse Rate 81 73 76 Respiratory Rate 10 L 16 16 Blood Pressure 120/68 136/60 129/60 Pulse Oximetry 100 100 100 Oxygen Delivery Room Air Oxygen Flow Rate 01/16/22 18:28 01/16/22 21:18 01/16/22 20:00 Temperature 97.6 F Pulse Rate 77 72 Respiratory Rate 16 Blood Pressure 125/62 Pulse Oximetry 99 95 Oxygen Delivery Room Air Room Air Oxygen Flow Rate 01/16/22 22:00 01/16/22 22:20 01/17/22 02:20 Temperature 97.8 F 97.8 F 97.6 F Pulse Rate 72 72 68 Respiratory Rate 18 18 18 Blood Pressure 120/60 120/60 102/56 L Pulse Oximetry 97 97 97 Oxygen Delivery Oxygen Flow Rate 01/17/22 06:00 01/17/22 09:16 01/17/22 08:35 Temperature 98.0 F Pulse Rate 70 Respiratory Rate 18 Blood Pressure 127/51 L Pulse Oximetry 97 Oxygen Delivery Room Air Room Air Oxygen Flow Rate 01/17/22 10:20 01/17/22 10:55 Temperature 98.3 F Pulse Rate 78 Respiratory Rate 18 Blood Pressure 134/67 Pulse Oximetry 99 97 Oxygen Delivery Room Air Oxygen Flow Rate Intake/Output Intake/Output: Intake & Output 01/14/22 01/15/22 01/16/22 01/17/22 23:59 23:59 23:59 23:59 Intake Total 350 / 350 540 / 540 Output Total 200 / 200 625 / 625 Balance 150 / 150 -85 / -85 Meds/Results Medications: Active Medications Generic Name Dose Route Start Last Admin Trade Name Freq PRN Reason Stop Dose Admin Acetaminophen 1,000 mg 01/16/22 16:35 Acetaminophen 500 Mg Tablet PO Q8H PRN mild pain Hydrocodone Bitart/Acetaminophen 1 tab 01/16/22 16:35 Hydrocodone/Acetaminophen (*Crx) 5-325 Mg Tablet PO Q3H PRN Pain Rated 4-6 Hydrocodone Bitart/Acetaminophen 2 tab 01/16/22 16:35 Hydrocodone/Acetaminophen (*Crx) 5-325 Mg Tablet PO Q6H PRN Pain Rated 7-10 Ascorbic Acid 1,000 mg 01/17/22 09:00 01/17/22 08:29 Ascorbic Acid 500 Mg Tablet PO 1,000 mg QAM RUBIA Administration Aspirin 325 mg 01/17/22 09:00 01/17/22 08:28 Aspirin 325 Mg Tablet PO 325 mg DAILY RUBIA Administration Calcium Carbona
[2022-01-17] MEDS: FERROUS SULFATE DRIED 142 MG TABCR PO (13:20)
[2022-01-18 05:09] VITALS: BP 135/70; PULSE 80; RESP 18; TEMP 36.7; O2SAT 97
--- NOTE | 2022-01-18 07:27 | PM.DS ---
DS: Admitting Diagnosis Discharge Date 01/18/2022 Admitting Diagnosis Eschar lower left leg DS: Discharge Diagnosis Discharge Diagnosis (1) Eschar of lower leg: Code(s): R23.4 - Changes in skin texture Status: Acute Assessment and Plan: 77-year-old female postop day 1 after debridement of eschar tissue and placement of wound VAC. uneventful overnight stay. Plan to have the dressing changed today prior to discharge. She will have home health see her starting next week on Friday and Friday for dressing changes. She will also be started on Keflex for 2 weeks. She has an appointment scheduled on January 30 for wound check. We will plan to take her sutures out at this time. She can be full weight-bearing on the extremity with while using a cane. She will continue to take 325 mg aspirin for DVT prophylaxis. DS: Summary Hospital Course Reason for hospitalization: Observation after debridement of lower left leg and placement of wound vac Hospital Course: Patient was brought back to OR on Friday01/16/2022 for debridement of eschar tissue of the left lower leg. During the debridement, wound VAC was placed. She has been seen by therapy and is doing very well with this. The dressing will be changed today prior to her discharge. She will also have home health come for dressing changes starting next week. Status at Discharge Functional status at discharge: uses cane/walker Overall status at discharge: patient is progressing back to baseline Time Spent with Patient Time attestation: Total time spent providing and/or coordinating discharge services: Time spent: Less than 30 minutes Exam Const: General: comfortable and no acute distress Eyes: General: appearance normal, both eyes and all related structures Resp: Effort & Inspection: normal respiratory effort Skin: General skin exam: normal color and no rashes or lesions noted Extrem: Other: Exam of the left lower extremity reveals a clean and dry wound VAC dressing. There is slight sanguinous to serosanguineous fluid draining from the wound. She is able to wiggle her toes and denies any radiation pain away from the surgical site. Calves negative. Neurovascular status unremarkable. Psych: Mental Status: mental status grossly normal DS: Data Procedures/Treatments: Debridement eschar tissue of left lower leg - 01/16/2022. Discharge Plan Discharge Attending physician on discharge: Dexter Lopez Discharging Clinician: Thomas Grajeda Patient Disposition: Home Health Service Activity: other - see discharge instructions Diet: as tolerated Wound Care Instructions: other - see discharge instructions Discharge Instructions: Per Care Coordination: [facility] will contact you prior to their first visit. [facility] RN will follow for wound care. [facility] can be contacted at [phone]. For Dr. Lopez: Please keep the dressing clean and dry. You have a scheduled follow appt on 01/30/22 for wound check and suture removal. [facility] will see you on // starting next week for dressing changes. You can be full weight bearing with a cane. Patient Instructions: Antibiotic Form Stand Alone Forms: General Discharge Information, General Discharge Instructions Follow-up/Referrals: Dexter Lopez MD [Physician] - Thomas Grajeda, ENROLLMENT SPECIALIST-C [Advanced Practice Nurse] - Discharge Medications: New cephalexin 750 mg capsule 750 mg PO Q12H Qty: 30 1RF Continued Myrbetriq 25 mg tablet extended release 24 hr 25 mg PO QAM PreserVision AREDS-2 [phone] gb-lpfl-nd-mg capsule 1 tablet PO BID High Potency Iron 134 mg (27 mg iron) tablet 134 mg PO QAM vitamin E 200 unit capsule 200 unit PO QAM omeprazole 20 mg capsule,delayed release(DR/EC) 20 mg PO QAM aspirin 325 mg tablet 325 mg PO DAILY calcium 600 mg Capsule 600 mg PO QAM asc
[2022-01-18] MEDS: ASCORBIC ACID 500 MG TABLET 1000 MG PO (08:36)
[2022-01-18] MEDS: PRAVASTATIN SODIUM 20 MG TABLET 40 MG PO (08:37)
[2022-01-18] MEDS: ASPIRIN 325 MG TABLET PO (08:37)
[2022-01-18] MEDS: OPTI-GEN TAB 1 TABLET PO (08:37)
[2022-01-18] MEDS: CALCIUM CARBONATE (OSCAL) 500 MG TABLET PO (08:37)
[2022-01-18] MEDS: OMEGA 3 POLYUNSAT FATTY ACIDS 1 GM CAP PO (08:37)
[2022-01-18] MEDS: MIRABEGRON 25 MG ER TABLET PO (08:38)
[2022-01-18] MEDS: VITAMIN E 100 UNIT CAPSULE 200 UNIT PO (08:38)
[2022-01-18] MEDS: hydroCHLOROthiazide 25 MG TABLET PO (08:38)
[2022-01-18] MEDS: SENNA/DOCUSATE SODIUM TABLET 2 TAB PO (08:38)
[2022-01-18] MEDS: PANTOPRAZOLE 40 MG TABLET PO (08:38)
[2022-01-18] MEDS: polyethylene glycoL 3350 17 GM POWD.PACK PO (08:39)
[2022-01-18] MEDS: FERROUS SULFATE DRIED 142 MG TABCR PO (10:24)
[2022-01-18 10:25] VITALS: BP 114/66; PULSE 68; RESP 16; TEMP 36.2; O2SAT 97
== END 2022-01-18 14:19 | disposition home health service (06) ==
LOC: ANHSURGERY 12:35 → ANH2MED 01-18 07:43
PROVIDERS: Admitting Provider Orthopaedic Surgery; PCP Family Medicine; Visit Provider Nurse Practitioner
PROC: (CPT 11042; principal; 2022-01-16 14:00)
DX: T81.31XA Disruption of external operation (surgical) wound, not elsewhere classified, initial encounter (principal); R23.4 Changes in skin texture; Y83.8 Other surgical procedures as the cause of abnormal reaction of the patient, or of later complication, without mention of misadventure at the time of the procedure; Z96.652 Presence of left artificial knee joint; I12.9 Hypertensive chronic kidney disease with stage 1 through stage 4 chronic kidney disease, or unspecified chronic kidney disease; N18.30 Chronic kidney disease, stage 3 unspecified; E78.2 Mixed hyperlipidemia; K58.9 Irritable bowel syndrome, unspecified; Z79.82 Long term (current) use of aspirin; Z87.891 Personal history of nicotine dependence
CPT/HCPCS: 11042; 36415; 80048; 85014; 85018; 85610; 85730; 87081; 97110; 97161; 97530; A9270; G0378; J0690; J1100; J1885; J2370; J2405; J2704; J3010; J7120

== ENCOUNTER 2022-05-07 14:46 | Outpatient (CLI) | payer OTHER, SELFPAY ==
--- NOTE | ~2022-05-07 | MM_ITS ---
EXAMINATION: MM screening [facility] BI w mirta HISTORY: Screening mammogram TECHNIQUE: Craniocaudal and mediolateral oblique 3-D tomosynthesis images were obtained and synthetic 2-D images were generated. CAD analysis was submitted and interpreted. COMPARISON: 09/13/2019, 09/12/2018, 08/05/2016 BREAST PARENCHYMAL COMPOSITION: There are scattered areas of fibroglandular density. FINDINGS: There is no suspicious mass, calcification, or architectural distortion to suggest malignan cy in either breast. There has been no suspicious interval change. IMPRESSION: 1. No mammographic evidence of malignancy. 2. Recommend routine screening mammography in one year. BI-RADS Category 1: Negative Reviewed, dictated and finalized at location A.
--- NOTE | ~2022-05-07 | DEXA_ITS ---
Bone Density Report Name: IMAN BURNS Age: 77 Sex: Female Ethnicity: White Date of : 1945 Indication: postmenopausal; screening for osteoporosis; height loss; Referring Provider: LAST LIPSCOMB Study: Bone densitometry was performed. Exam Date: May 07, 2022 Accession number: [id number] Bone Density: Region BMD T-score Z-score Classification AP Spine(L1, L2, L3) 0.884 -1.2 1.3 Osteopenia Femoral Neck (Left) 0.788 -0.6 1.7 Normal Total Hip (Left) 0.766 -1.4 0.5 Osteopenia Femoral Neck (Right) 0.782 -0.6 1.6 Normal Total Hip (Right) 0.803 -1.1 0.8 Osteopenia Total Hip Mean 0.785 -1.3 0.7 Osteopenia World Health Organization criteria for BMD impression classify patients as: Normal (T-score at or above -1.0), Osteopenia (T-score between -1.0 and -2.5), or Osteoporosis (T-score at or below -2.5). 10-year Fracture Risk(1): Major Osteoporotic Fracture 10% Hip Fracture 1.5% Reported Risk Factors: [place] (), Neck BMD=0.788, BMI=25.3 (1) FRAX(R) Version 3.08. Fracture probability calculated for an untreated patient. Fracture probability may be lower if the patient has received treatment. Previous Exams: Region Exam Age BMD T-score BMD Change BMD Change Date g/cm2 vs Baseline vs Previous AP Spine (L1-L3) 05/07/2022 77 0.884 -1.2 -0.015 (-1.7%) -0.021 (-2.3%) 09/12/2018 73 0.905 -1.0 0.006 (0.7%) 0.006 (0.7%) 08/05/2016 71 0.899 -1.1 Total Hip(Left) 05/07/2022 77 0.766 -1.4 -0.039 (-4.8%) -0.132 (-14.7% 09/12/2018 73 0.898 -0.4 0.093 (11.6%)* 0.093 (11.6%)* 08/05/2016 71 0.805 -1.1 Total Hip(Right) 05/07/2022 77 0.803 -1.1 -0.036 (-4.3%) -0.112 (-12.2% 09/12/2018 73 0.915 -0.2 0.076 (9.1%)* 0.076 (9.1%)* 08/05/2016 71 0.839 -0.8 *Denotes significance at 95% confidence level, LSC for AP Spine = 0.022 g/cm2, LSC for Total Hip = 0.027 g/cm2 Clinical Information Provided by Patient: Has used the following medications: Vitamin D, Calcium Patient maximum height was 66.5 Menopause Age: 49 Drinks caffeinated beverages Onset of menses at age 13 Number of children 3 Impression: The patient has low bone mass, based on the Left Total Hip T-score. The patient has an estimated ten-year risk of hip fracture of 1.5% and an estimated ten-year risk of major fracture of 10%, based on the WHO FRAX algorithm. The BMD for the Total Hip(Left) decreased, changing by -14.
== END 2022-05-07 14:47 | disposition home or self-care (01) ==
PROVIDERS: PCP Family Medicine; Visit Provider Family Medicine
DX: Z12.31 Encounter for screening mammogram for malignant neoplasm of breast (principal); Z78.0 Asymptomatic menopausal state; M85.88 Other specified disorders of bone density and structure, other site; M85.851 Other specified disorders of bone density and structure, right thigh; M85.852 Other specified disorders of bone density and structure, left thigh; R29.890 Loss of height
CPT/HCPCS: 77063; 77067; 77080

== ENCOUNTER 2022-06-13 07:21 | Outpatient (RCR) | payer OTHER, SELFPAY ==
[2022-03-15 09:48] VITALS: BMI 23.4
== END 2022-06-13 23:59 | disposition home or self-care (01) ==
LOC: ANHWOC 07:21
PROVIDERS: PCP Family Medicine; Visit Provider Nurse Practitioner
DX: R23.4 Changes in skin texture (principal)
CPT/HCPCS: 99212; 99213; A9270; G0463

== ENCOUNTER 2022-06-27 10:29 | Outpatient (RCR) | payer OTHER, SELFPAY ==
[2022-06-14 00:02] VITALS: BMI 23.4
== END 2022-09-16 09:48 | disposition home or self-care (01) ==
LOC: ANHWOC 10:29
PROVIDERS: PCP Family Medicine; Visit Provider Nurse Practitioner
DX: R23.4 Changes in skin texture (principal)
CPT/HCPCS: 99213; G0463

== ENCOUNTER 2023-08-21 15:23 | Outpatient (CLI) | payer OTHER, SELFPAY ==
--- NOTE | ~2023-08-21 | MM_ITS ---
EXAMINATION: MM screening [facility] BI w mirta HISTORY: Screening mammogram TECHNIQUE: Craniocaudal and mediolateral oblique 3-D tomosynthesis images were obtained and synthetic 2-D images were generated. CAD analysis was submitted and interpreted. COMPARISON: 05/07/2022, 09/13/2019, 09/12/2018 BREAST PARENCHYMAL COMPOSITION: There are scattered areas of fibroglandular density. FINDINGS: No suspicious mass, calcification, or architectural distortion are identified in either lisseth ast to suggest malignancy. There has been no suspicious interval change. IMPRESSION: 1. No mammographic evidence of malignancy. 2. Recommend routine screening mammography in one year. BI-RADS Category 1: Negative Reviewed, dictated and finalized at location A. K RANDER
== END 2023-08-21 15:24 | disposition home or self-care (01) ==
PROVIDERS: PCP Family Medicine; Visit Provider Physician Assistant
DX: Z12.31 Encounter for screening mammogram for malignant neoplasm of breast (principal)
CPT/HCPCS: 77063; 77067

== ENCOUNTER 2025-02-28 15:32 | Outpatient (CLI) | payer OTHER, SELFPAY ==
--- NOTE | ~2025-02-28 | XR_ITS ---
EXAM: XR lumbar spine 2-3V DATE: 02/28/2025 15:50 HISTORY: M54.9 - Dorsalgia, unspecified . COMPARISON: 04/18/2021, images only. FINDINGS: 5 nonrib-bearing lumbar-type vertebral bodies, likely with hypoplastic ribs at T12. Mild s coliosis. Pedicles intact. Laminectomy defect at L3. Stable multilevel mild grade 1 listheses. Verteb ral body heights preserved. Multilevel disc space narrowing and marginal osteophytosis with vacuum ph enomenon at multiple levels. Severe mid and lower lumbar facet hypertrophy/sclerosis. No fracture or dislocation. IMPRESSION: No acute fracture or traumatic malalignment detected in the lumbar spine. Multilevel neva re degenerative disc disease and facet arthropathy. Reviewed, dictated and finalized at location K. IMPRESSION: No acute fracture or traumatic malalignment detected in the lumbar spine. Multilevel severe degenerative disc disease and facet arthropathy.
--- OUTSIDE RECORDS SUMMARY | 2025-02-28 15:36 | XMS_ITS | Clinical Summary ---
Author Organization [facility] Address [address] [place] [address] Care Team Providers Care Rn Homecare Name Role Phone Ayden Olea MD Primary Care Provider [phone] Social History Tobacco Use Types Packs/Day Years Used Date Smoking Tobacco: Never Assessed Comments Unknown Sex and Gender Information Value Date Recorded Sex Assigned at Not on file Legal Sex Female 1:50 PM CDT Gender Identity Not on file Sexual Orientation Not on file Plan of Treatment Health Maintenance Due Date Last Done Comments DTaP, Tdap and Td Vaccines (1 - Tdap) 01/14/1964 Annual Medicare Wellness Visit 01/14/2009 Dexa Scan (General) 01/14/2009 Zoster Vaccines (2 of 3) 05/13/2018 03/18/2018, 11/16 COVID-19 Vaccine ( season) 2024 05/29/2023, 09/22/2022, 01/03/2022, Additional history exists Pneumococcal Vaccine: 50+ Years Completed 06/08/2014, 05/27/2013 RSV Immunization or 60+ Years Completed 05/29/2023 Meningococcal B Vaccine Aged Out No l onger eligible based on patient's age to complete this topic Meningococcal Vaccine Aged Out No alexia charmaine eligible based on patient's age to complete this topic RSV Immunizations Under 20 Months Aged Out No longer eligible based on patient's age to complete this topic Insurance E[employer] Care Teams Rn Homecare Relationship Specialty Start Date End Date Ayden Olea MD [address] [place] [address] PCP - General FAMILY PRACTICE 01/17/24
== END 2025-02-28 15:33 | disposition home or self-care (01) ==
PROVIDERS: PCP Family Medicine; Visit Provider Student in an Organized Health Care Education/Training Program
DX: M51.369 Other intervertebral disc degeneration, lumbar region without mention of lumbar back pain or lower extremity pain (principal); M47.816 Spondylosis without myelopathy or radiculopathy, lumbar region
CPT/HCPCS: 72100

== ENCOUNTER 2025-03-24 14:09 | Outpatient (CLI) | payer OTHER, SELFPAY ==
--- OUTSIDE RECORDS SUMMARY | 2025-03-24 14:12 | XMS_ITS | Clinical Summary ---
Author Organization [facility] Address [address] [place] [address] Care Team Providers Care Combination Machine Tool Operator Name Role Phone Ayden Olea MD Primary Care Provider [phone] Social History Tobacco Use Types Packs/Day Years [...] complete this topic Insurance ESSENCE Care Teams Combination Machine Tool Operator Relationship Specialty Start Date End Date Ayden Olea MD [address] [place] [address] PCP - General FAMILY PRACTICE 01/17/24
--- NOTE | 2025-04-04 08:27 | WPDHOLTEREM ---
Holter/Event Monitor Holter/Event Monitor Date of procedure: 03/24/25 Holter/Event Procedure: 3-7 Day Holter Monitor Indications: Palpitations Conclusion: 1. 6 days and 15 hours holter monitor on 03/24/25. 2. Predominant rhythm is sinus rhythm. HR range 49-179 bpm; average HR 67 bpm. HR at 49 bpm was on 03/28/25 at 6:29 am. 3. There are rare premature supraventricular complexes, rare supraventricular couplets, and rare supraventricular triplets. There are 22 episodes of supraventricular tachycardia with fastest at 179 bpm and longest lasting 15 beats. 4. There are rare premature ventricular complexes and rare ventricular couplets. No ventricular tachycardia. 5. No significant pauses greater than 3 seconds. 6. Patient reports 1 episode of symptoms of lightheadedness, shortness of breath and shaky which demonstrates sinus rhythm at 83 bpm.
== END 2025-03-24 14:10 | disposition home or self-care (01) ==
LOC: ANHCARD 14:10
PROVIDERS: PCP Family Medicine; Visit Provider Physician Assistant
DX: R94.31 Abnormal electrocardiogram [ECG] [EKG] (principal); R07.9 Chest pain, unspecified; R00.2 Palpitations; M50.30 Other cervical disc degeneration, unspecified cervical region
CPT/HCPCS: 93242

== ENCOUNTER 2025-04-14 13:27 | Outpatient (CLI) | payer OTHER, SELFPAY ==
--- OUTSIDE RECORDS SUMMARY | 2025-04-12 11:15 | XMS_ITS | Encounter Summary ---
Author Organization [facility] Address [address] [place] [address] Phone Care Team Providers Care Hadoop Developer Name Role Phone Ayden Oela MD Primary Care Provider Encounter Details Date Type Department Care Team (Late st Contact Info) Description 04/12/2025 11:15 AM CDT Lab [facility] Medicine Endocrinology Metabolism and Lipid [address] [place] [address] [place] [address] SVT (supraventricular tachycardia) Social History Tobacco Use Types Packs/Day Years Used Date Smoking Tobacco: Never Smokeless Tobacco: Never Alcohol Use Standard Drinks/Week Comments Yes 0 (1 standard drink = 0.6 oz pur e alcohol) Very rare alcohol use Comments No Sex and Gender Information Value Date Recorded Sex Assigned at Not on file 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 Gender Identity Not on file Sexual Orientation Not on file documented as of this encounter Plan of Treatment Not on file documented as of this encounter Procedures Procedure Name Priority Date/Time Associated Diagnosis Comments TSH Routine 04/12/2025 11:08 AM CDT SVT (supraventricular tachycardia) MAGNESIUM Routine 04/12/2025 11:08 AM CDT SVT (supraventricular tachycardia) BASIC METABOLIC PANEL Routine 04/12/2025 11:08 AM CDT SVT (supraventricular tachycardia) documented in this encounter Results * TSH (04/12/2025 11:08 AM CDT) TSH (Thyrotropin) 1.66 0.27 - 4.20 uIU/mL [facility] Blood 04/12/2025 11:0 8 AM CDT 04/12/2025 1:02 PM CDT Dawood Gómez MD PhD LAB BLOOD ORDERABLES Fi nal Result [facility] * Basic metabolic panel (04/12/2025 11:08 AM CDT) Glucose 75 64 - 99 mg/dL [facility] Comment: NONFASTING GLUCOSE RANGE = 64-199 mg/dL FASTING GLUCOSE 64 - 99 = NORMAL FASTING GLUCOSE 100 - 125 = IMPAIRED FASTING GLUCOSE FASTING GLUCOSE >=126 = PROVISIONAL DIAGNOSIS OF DIABETES Potassium 3.4 3.3 - 5.1 mmol/L [facility] Creatinine 0.79 0.60 - 1.10 mg/dL [facility] BUN 17 7 - 23 mg/dL [facility] Sodium 142 135 - 145 mmol/L [facility] Chloride 102 95 - 107 mmol/L [facility] CO2 Content 26 21 - 29 mmol/L [facility] Calcium 9.9 8.6 - 10.3 mg/dL [facility] eGFR 75.1 >60.0 mL/min/1.7 3 m2 [facility] Blood 04/12/2025 11:0 8 AM CDT 04/12/2025 1:02 PM CDT Dawood Gómez MD PhD LAB BLOOD ORDERABLES Fi nal Result [facility] * Magnesium (04/12/2025 11:08 AM CDT) Magnesium 2.1 1.6 - 2.6 mg/dL [facility] Blood 04/12/2025 11:0 8 AM CDT 04/12/2025 1:02 PM CDT us Dawood Gómez MD PhD LAB BLOOD ORDERABLES Fi nal Result [facility] documented in this encounter Visit Diagnoses Diagnosis SVT (supraventricular tachycardia) Other specified cardiac dysrhythmias documented in this encounter Care Teams Hadoop Developer Relationship Specialty Start Date End Date Ayden Olea MD [address] [place] [address] PCP - General 10/16/18 documented as of this encounter
--- OUTSIDE RECORDS SUMMARY | 2025-04-14 13:33 | XMS_ITS | Clinical Summary ---
Author Organization [facility] Address [address] [place] [address] Care Team Providers Care Wooden Boat Builder Name Role Phone Ayden Olea MD Primary Care Provider Allergies Active Allergy Reactions Criticality Noted Date Comments Iodine Rash Medium 04/12/2025 Latex Rash Medium 04/12/2025 Medications tolterodine LA (DETROL LA) 2 mg 24 hr capsule Take 2 mg by mouth daily. Active fish btw-[id number]-1-vit C-vit E 2,000-650-12 mg/2.5 gram emulsion in packet Take by mouth. Active vit A/vit C/vit E/zinc/copper (ICAPS AREDS ORAL) Take by mouth. Active ferrous sulfate 134 mg (27 mg of elemental iron) tabletIndications: Iron Deficiency Anemia Active ascorbic acid (ascorbic acid with jose hips) 500 mg tablet,chewable Acti ve cholecalciferol (VITAMIN D-3) 1,000 unit Take 1,000 Units by mouth daily. Active calcium carbonate-vitamin D2 (OSCAL) 250 (625)-125 mg-unit per tablet Take 1 tablet by mouth daily. Active omeprazole (PriLOSEC) 20 mg capsule Take 20 mg by mouth daily. Active aspirin 81 mg tablet Take 81 mg by mouth daily. Active ondansetron ODT (ZOFRAN-ODT) 4 mg disintegrating tabletIndications: Nausea and Vomiting Take 1 tablet (4 mg total) by mouth every 6 (six) hours as needed for nausea or vomiting Indications: Nausea and Vomiting. 20 tablet 1 10/19/19 19 Active Additional Information Patient not taking.Reported on 04/12/2025 polyethylene glycol (MIRALAX) 17 gram packetIndications: constipation Take 1 packet (17 g total) by mouth daily Indications: constipation. 30 packet 1 10/20/19 19 Active Additional Information Patient not taking.Reported on 04/12/2025 docusate sodium (COLACE) 100 mg capsuleIndications :constipation Take 1 capsule (100 mg total) by mouth 2 (two) times a day Indications: constipation. 60 capsule 1 10/19/19 Active Additional Information Patient not taking.Reported on 04/12/2025 acetaminophen (TYLENOL) 325 mg tabletIndications: Fever,Pain Take 2 tablets (650 mg total) by mouth every 4 (four) hours as needed for pain or fever (1st line) Indications: fever, Pain. 30 tablet 10/19/19 Active hydroCHLOROthiazid e (HYDRODIURIL) 25 mg tablet Take 1 tablet (25 mg total) by mouth daily 04/05/20 25 Active pravastatin (PRAVACHOL) 40 mg tablet Take 1 tablet (40 mg total) by mouth daily 03/15/20 25 Active amoxicillin 500 mg tablet TAKE 4 TABLETS BY MOUTH 60 MINUTES PRIOR TO DENTAL PROCEDURE 04/07/20 25 Active dilTIAZem CD/XR/XT (CARDIZEM CD,DILACOR XR) 120 mg 24 hr capsule Take 1 capsule (120 mg total) by mouth daily 30 capsule 11 04/12/20 25 Active Active Problems Problem Noted Date Diagnosed Date Nausea & vomiting 10/17/2018 Assessment & Plan (10/18/2018 9:45 AM TELECOM SPECIALIST): - 2/2 viral illness and constipation as above. - Improved today with PRNs. - Bowel regimen as above. - Conservative management for EBV. - Zofran PRN for nausea, IVF with NS for volume repletion ongoing. Assessment & Plan (10/17/2018 11:00 AM TELECOM SPECIALIST): - She presents with five days of nausea and vomiting and was found to have marked LFT abnormalities as discussed above. A viral cause is most likely (HIV and acute hepatitis and respiratory viral penal negative). US WNL, autoimmune workup pending. Blood cultures sent at [facility], these will be followed. - EBV panel, CMV serologies, MALLORY screen pending. - She is not having BMs, so stool studies cancelled. Will send if she develops diarrhea. - Hepatology consult pending. - Zofran PRN for nausea, IVF with NS for volume repletion ongoing. Assessment & Plan (10/17/2018 1:32 AM TELECOM SPECIALIST): She presents with five days of nausea and vomiting and was found to have marked LFT abnormalities with AST/ALT up to 369/506, alkaline phosphatase 394, total bilirubin 1.6. 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 Other infectious etiologies should certainly be ruled out, however, and autoimmune, biliary, and vascular etiologies are also in the differential. She is not on any obvious culprit medications. -Blood cultures sent at [facility], follow-up -Send repeat basic labs including hepatic function panel and INR -Send acute hepatitis panel, HIV, EBV panel, CMV serologies, RVP in light of cough, MALLORY screen -Liver ultrasound with doppler ordered, NPO until this is performed -Send stool culture, Clostridium difficile, and O/P if she develops diarrhea -Hepatology consult, voicemail left -Zofran PRN for nausea, IVF with NS for volume repletion Hyponatremia 10/17/2018 Assessment & Plan (10/18/2018 9:44 AM TELECOM SPECIALIST): - Her sodium is improved to 134, she had hypovolemic hyponatremia that is resolving with fluids and PO. - Emesis improved. - Stop IV fluids. Assessment & Plan (10/17/2018 10:56 AM TELECOM SPECIALIST): - Her sodium is 128, hypovolemic hyponatremia based on her recent emesis. - Emesis improved. Na improved to 133 with fluids. ADAT. - Continue IVF NS at 125 cc/hour. Recheck BMP tonight. Assessment & Plan (10/17/2018 1:27 AM TELECOM SPECIALIST): Her sodium is 128, almost certainly hypovolemic hyponatremia based on her history. -IVF with NS at 125 cc/hour for now, trend BMP Essential hypertension 10/17/2018 Assessment & Plan (10/18/2018 9:43 AM TELECOM SPECIALIST): - Hold home HCTZ 25 mg daily in setting of hypovolemia. Resume before discharge as vitals allow. Assessment & Plan (10/17/2018 10:55 AM TELECOM SPECIALIST): - Hold home HCTZ 25 mg daily in setting of hypovolemia. Resume before discharge as vitals allow. Assessment & Plan (10/17/2018 1:28 AM TELECOM SPECIALIST): Hold home HCTZ 25 mg daily in setting of hypovolemia. Hyperlipidemia 10/17/2018 Assessment & Plan (10/17/2018 1:28 AM TELECOM SPECIALIST): Continue home pravastatin 40 mg daily. Overactive bladder 10/17/2018 Assessment & Plan (10/17/2018 11:00 AM TELECOM SPECIALIST): - Oxybutynin XL 5 mg daily. Assessment & Plan (10/17/2018 1:29 AM TELECOM SPECIALIST): Switch tolterodine LA to oxybutynin XL 5 mg daily. Headache 10/17/2018 Assessment & Plan (10/18/2018 9:43 AM TELECOM SPECIALIST): - 2/2 viral syndrome. Holding NSAIDS. Continue PRN tylenol. Monitor. Assessment & Plan (10/17/2018 10:55 AM TELECOM SPECIALIST): - Improved today. Holding NSAIDS. Monitor. Assessment & Plan (10/17/2018 1:29 AM TELECOM SPECIALIST): She complains of chronic headaches that have been relieved with daily ibuprofen use. -Hold ibuprofen for the moment given the high risk of MAURIZIO in the setting of hypovolemia GERD (gastroesophageal reflux disease) 9 Assessment & Plan (10/18/2018 9:43 AM TELECOM SPECIALIST): - PO PPI. Assessment & Plan (10/17/2018 10:55 AM TELECOM SPECIALIST): - PO PPI. Assessment & Plan (10/17/2018 1:30 AM TELECOM SPECIALIST): Switch home omeprazole to pantoprazole while inpatient. 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 Improved today to 263/385, bili 1.0. No prior liver disease known. Vital hepatitis panel is normal. LFTs are stable today. US without cirrhosis, no thrombus or other abnormality. No biliary duct dilation or obstructive cause. - EBV IgM + though monospot and IgG negative. Per liver, EBV is the most likely cause, especially with atypical lymphocytes on a smear and lymphocytosis. - Hepatology consult recs appreciated. A few labs are still pending. - WBC improved. - She can likely go home today to continue to recover there with stable to improved labs. - Will need repeat CBC, CMP in one week. - Tylenol PRN for fevers. PRN conservative symptom management. Assessment & Plan (10/17/2018 10:57 AM TELECOM SPECIALIST): - New transaminitis with AST/ALT up to 369/506, alkaline phosphatase 394, total bilirubin 1.6. No prior liver disease known. Vital hepatitis panel is normal. LFTs are stable today. US without cirrhosis, no thrombus or other abnormality. No biliary duct dilation or obstructive cause. - Recent viral syndrome with nonproductive cough and N/V with low grade fevers may be a culprit. RVP panel is negative. CBC diff with lymphocytes also points to a viral cause. - Hepatology consult placed. Appreciate recs. - Trend CMP tomorrow. Awaiting results of autoimmune workup. Constipation 10/17/2018 Assessment & Plan (10/18/2018 9:43 AM TELECOM SPECIALIST): - Improved PO, but still no BM. - One dose mag citrate today. - Miralax, colace BID, titrate as needed as PO improves. Assessment & Plan (10/17/2018 11:01 AM TELECOM SPECIALIST): - Poor PO, but no BM in 8 days. - Add miralax, continue colace BID, titrate as needed as PO improves. Encounters Date Type Department Care Team Description 04/12/2025 11:15 AM CDT Lab [facility] Endocrinology Metabolism and Lipid [address] [place] [address] [place] [address] SVT (supraventricular tachycardia) 04/12/2025 10:30 AM CDT Office Visit [facility] Cardiology [address] [place] [address] [place] [address] Dawood Gómez MD PhD Essential hypertension (Primary Dx); Palpitations; SVT (supraventricular tachycardia) 04/12/2025 Results Follow-Up [facility] Cardiology [address] [place] [address] [place] [address] Dawood Gómez MD PhD ECG 12 lead, Magnesium, Basic metabolic panel, TSH 04/05/2025 Telephone [facility] Cardiology [address] [place] [address] Diego Mendozaalexandr New Patient 04/05/2025 Telephone [facility] Cardiology [address] [place] [address] Jocelin Cordero from Last 3 Months Surgical History Surgery Date Site/Laterality Comments APPENDECTOMY TONSILLECTOMY CHOLECYSTECTOMY Medical History Medical History Date Comments High cholesterol HTN (hypertension) Incontinence Osteopenia GERD (gastroesophageal reflux disease) Family History Medical History Relation Name Comments Coronary artery disease Father Alzheimer's disease Mother Coronary artery disease Paternal Grandfather Relation Name Status Comments Father Mother Paternal Grandfather Social History Tobacco Use Types Packs/Day Years Used Date Smoking Tobacco: Never Smokeless Tobacco: Never Alcohol Use Standard Drinks/Week Comments Yes 0 (1 standard drink = 0.6 oz pur e alcohol) Very rare alcohol use Comments No Sex and Gender Information Value Date Recorded Sex Assigned at Not on file Legal Sex Female 12:52 AM TELECOM SPECIALIST Gender Identity Not on file Sexual Orientation Not on file Obstetrics History Last Filed Vital Signs Vital Sign Reading Time Taken Comments Blood Pressure 152/74 04/12/2025 10:18 AM CDT Pulse 68 04/12/2025 10:18 AM CDT Temperature 37.1 C (98.8 F) 10/18/2018 12:44 PM TELECOM SPECIALIST Respiratory Rate 16 10/18/2018 12:44 PM TELECOM SPECIALIST Oxygen Saturation 99% 04/12/2025 10:18 AM CDT Inhaled Oxygen Concentration - - Weight 66.2 kg (146 lb) 04/12/2025 10:18 AM CDT Height 167.6 cm (5' 6) 04/12/2025 10:18 AM CDT Body Mass Index 23.57 04/12/2025 10:18 AM CDT Plan of Treatment Health Maintenance Due Date Last Done Comments Depression Screening 1945 Fall Risk Assessment 1945 Osteoporosis Screening-Bone Density Scan 1945 DTaP/Tdap/Td Vaccine (1 - Tdap) 01/14/1955 Hepatitis B Screening 01/14/1962 Well Visit 65+ 01/14/2009 Zoster Vaccine (2 of 3) 05/13/2018 03/18/2018, 11/28 Covid-19 Vaccine (2023-2 5 season) 2024 05/25/2024, 05/29/2023, 09/22/2022, Additional history exists Influenza Vaccine (#1) 2025 , 05/29/2023, 05/01/2022, Additional history exists Pneumococcal vaccine 65+ Completed 06/08/2014, 05/18 Procedures Procedure Name Priority Date/Time Associated Diagnosis Comments TSH Routine 04/12/2025 11:08 AM CDT SVT (supraventricular tachycardia) BASIC METABOLIC PANEL Routine 04/12/2025 11:08 AM CDT SVT (supraventricular tachycardia) MAGNESIUM Routine 04/12/2025 11:08 AM CDT SVT (supraventricular tachycardia) ECG 12-LEAD Routine 04/12/2025 10:20 AM CDT Essential hypertension from Last 3 Months Results * TSH (04/12/2025 11:08 AM CDT) TSH (Thyrotropin) 1.66 0.27 - 4.20 uIU/mL [facility] Blood 04/12/2025 11:0 8 AM CDT 04/12/2025 1:02 PM CDT Dawood Gómez MD PhD LAB BLOOD ORDERABLES Fi nal Result Performing Organization Address [facility] Co de Phone Number [facility] * Magnesium (04/12/2025 11:08 AM CDT) Magnesium 2.1 1.6 - 2.6 mg/dL [facility] Blood 04/12/2025 11:0 8 AM CDT 04/12/2025 1:02 PM CDT Dawood Gómez MD PhD LAB BLOOD ORDERABLES Fi nal Result Performing Organization Address [facility] de Phone Number [facility] * Basic [...] PhD LAB BLOOD ORDERABLES Fi nal Result [facility] * ECG 12 lead (04/12/2025 10:20 AM CDT) Dawood Gómez MD PhD ECG ORDERABLES Edited Result - Final from Last 3 Months Insurance [employer] Advance Directives For more information, please contact: [phone] Documents on File Type Date Recorded Patient Language Therapist Expl anation ADVANCE DIRECTIVE 10/20/2018 6:12 AM POWER OF DIRECTOR OF CARDIOLOGY SERVICE LINE * Full Code (Latest Code Status on File) Date Activated Date Inactivated Comments 10/17/2018 12:59 AM 10/18/2018 7:30 PM Care Teams Wooden Boat Builder Relationship Specialty Start Date End Date Ayden Olea MD [address] [facility] [address] [place] [address] PCP - General 10/16/18
--- OUTSIDE RECORDS SUMMARY | 2025-04-14 13:33 | XMS_ITS | Encounter Summary ---
Author Organization [facility] Address [address] [place] [address] Phone Care Team Providers Care Security Ambassador Name Role Phone Ayden Olea MD Primary Care Provider Encounter Details Date Type Department Care Team (Late st Contact Info) Description 04/05/2025 Telephone [facility] Cardiology [address] [facility] 8th [place] [address] [place] [phone] Jocelin Cordero Social History Tobacco Use Types Packs/Day Years Used Date Smoking Tobacco: Never Smokeless Tobacco: Never Alcohol Use Standard Drinks/Week Comments Yes 0 (1 standard drink = 0.6 oz pur e alcohol) Very rare alcohol use Comments No Sex and Gender Information Value Date Recorded Sex Assigned at Not on file 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
--- OUTSIDE RECORDS SUMMARY | 2025-04-14 13:33 | XMS_ITS | Clinical Summary ---
Author Organization [facility] Address [address] [place] [address] Care Team Providers Care Decal Decorator Name Role Phone Ayden Olea MD Primary Care Provider [phone] Social History Tobacco Use Types Packs/Day Years [...] complete this topic Insurance ESSENCE Care Teams Decal Decorator Relationship Specialty Start Date End Date Ayden Olea MD [address] [place] [address] PCP - General FAMILY PRACTICE 01/17/24
--- OUTSIDE RECORDS SUMMARY | 2025-04-14 13:33 | XMS_ITS | Encounter Summary ---
Author Organization [facility] Address [address] [place] [address] Phone Care Team Providers Care Carpenter Supervisor Name Role Phone Ayden Olea MD Primary Care Provider Encounter Details Date Type Department Care Team (Late st Contact Info) Description 04/12/2025 Results Follow-Up [facility] [address] [facility] 8th [place] [address] [place] [address] Dawood Gómez MD PhD [address] [facility] [address] [place] [address] ECG 12 lead, Magnesium, Basic metabolic panel, TSH Social History Tobacco Use Types Packs/Day Years Used Date Smoking Tobacco: Never Smokeless Tobacco: Never Alcohol Use Standard Drinks/Week Comments Yes 0 (1 standard drink = 0.6 oz pur e alcohol) Very rare alcohol use Comments No Sex and Gender Information Value Date Recorded Sex Assigned at Not on file 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
--- OUTSIDE RECORDS SUMMARY | 2025-04-14 13:33 | XMS_ITS | Encounter Summary ---
Author Organization [facility] Address [address] [place] [address] Phone Care Team Providers Care Content Engineer Name Role Phone Ayden Olea MD Primary Care Provider Reason for Visit * Reason Onset Date Comments New Patient 04/05/2025 Encounter Details Date Type Department Care Team (Late st Contact Info) Description 04/05/2025 Telephone [facility] Cardiology [address] [facility] 8th [place] [address] [place] [phone] Zakia Mendoaz New Patient Social History Tobacco Use Types Packs/Day Years Used Date Smoking Tobacco: Never Smokeless Tobacco: Never Alcohol Use Standard Drinks/Week Comments Yes 0 (1 standard drink = 0.6 oz pur e alcohol) Very rare alcohol use Comments No Sex and Gender Information Value Date Recorded Sex Assigned at Not on file Legal Sex Female 12:52 AM HOME CARE COORDINATOR Gender Identity Not on file Sexual Orientation Not on file documented as of this encounter Miscellaneous Notes * Telephone Encounter - Irma Moore - 04/06/2025 9:23 AM CDT Pcp records scanned in * Telephone Encounter - Mandie Rosario - 04/05/2025 12:17 PM CDT Requested records from PCP * Telephone Encounter - Zakia Mendoza - 04/05/2025 12:09 PM CDT Diagnosis/Reason for Appointment: ABNORMAL HEART MONITOR RESULTS Referring Physician: PCP Ref Ph: If Referring MD is not PCP, list specialty: Triage Questions Yes No Who/Where/When/Notes Are you actively undergoing any kind of cancer treatments including radiation, chemotherapy, or immunotherapy or are these planned in the future? [] [x] If 'Yes', Schedule first available with Cardio-Oncology If yes where were you treated? Have you ever seen a Cold Food Packer in an office setting? [] [x] Is this a heart condition that has existed since (congenital)? [] [] IF SCHEDULING PATIENT WITH MATERNAL Have you had a baby in the last year or are you ? (If yes send to Dr. Marsh for review) [] [] Have you had heart or blood pressure problems during a previous ? (If yes send to Dr. Marsh for review) [] [] Dr. Norma Sanchez Patients only: Are you a hemodialysis or peritoneal dialysis patient? (If yes then patient must be referred from another MD, DO NOT SCHEDULE) [] [] Are you a computer lab para professional? [] [] Patient History Questions Yes No Where/When/Notes Have you EVER been hospitalized for ANY cardiac issue? [] [x] Have you ever had any cardiac testing, imaging, or procedures? (Testing - echo, EKG, stress) (Imaging - Cardiac MRI, CT or calcium scoring) (Procedure - Ablation, Cardioversion, CABG, Cath) [x] [] HEART MONITOR, LAST WEEK, PCP Have you ever had a sleep study? [] [x] Do you have a device? If yes what type? (Pacemaker, Defibrillator, Implanted Loop Recorder) [] [x] If yes, where and when was device put in? Real Estate Assistant? ([employer], [employer], [employer]) Appointment Date: 04/28/2025 Provider: DR HALL Location: [facility] [x] Confirm appt date, time, provider and location. [x] Advise pt to arrive 15- 20 min early. [x] Advise patient to bring medications/list, photo ID and insurance card [x] Advise of New PatientPacket being mailed to them. documented in this encounter Plan of Treatment Not on file documented as of this encounter Visit Diagnoses Not on filedocumented in this encounter Care Teams Content Engineer Relationship Specialty Start Date End Date Ayden Olea MD [address] [facility] [address] [place] [address] PCP - General 10/16/18 documented as of this encounter
--- NOTE | 2025-04-14 13:59 | ECHO_ITS ---
Patient Info Name: Bushra Manzano Age: 80 years : 1945 Gender: Female Ht: 66 in Wt: 143 lbs BSA: 1.74 m2 HR: 65 bpm BP: 129 / 77 mmHg Heart Rhythm: Sinus Rhythm Technical Quality: Good Exam Date: 04/14/2025 2:07 PM Patient Status: O Admit Date: 04/14/2025 Exam Type: CA echo doppler color flow Complete two-dimensional, color flow and Doppler transthoracic echocardiogram is performed. Electromechanical Assembly Technician: Merrill Mendoza III Attending Provider: Dann Velasquez Summary 1. Complete two-dimensional, color flow and Doppler transthoracic echocardiogram is performed. 2. Left ventricular chamber dimension is normal. 3. Left ventricular systolic function is normal, estimated at 65-70. 4. There is moderate concentric increased left ventricular wall thickness. 5. The left ventricular diastolic function is normal. 6. E/e' 9 is minimally elevated. 7. Left atrial chamber dimension is mildly enlarged. 8. There is mild aortic valve sclerosis. 9. There is mild mitral valve regurgitation. 10. There is mild to moderate tricuspid valve regurgitation. 11. Moderate pulmonary hypertension, estimated pulmonary arterial systolic pressure is 51 mmHg. 12. There is trace pulmonic regurgitation. Left Ventricle E/e' 9 is minimally elevated. Left ventricular chamber dimension is normal. Left ventricular systolic function is normal, estimated at 65-70. There is moderate concentric increased left ventricular wall thickness. The left ventricular diastolic function is normal. Right Ventricle Right ventricular chamber dimension is normal. Right ventricular systolic function is normal and with normal TAPSE 1.8 cm. Left Atria Left atrial chamber dimension is mildly enlarged. Right Atria Right atrial chamber dimension is normal. Aortic Valve The aortic valve is trileaflet. There is mild aortic valve sclerosis. There is no aortic valve stenosis. There is no aortic valve regurgitation. Pulmonic Valve There is trace pulmonic regurgitation. Mitral Valve There is no mitral valve stenosis. There is mild mitral valve regurgitation. Tricuspid Valve There is mild to moderate tricuspid valve regurgitation. Moderate pulmonary hypertension, estimated pulmonary arterial systolic pressure is 51 mmHg. Pericardium/Pleural There is no pericardial effusion. Inferior Vena Cava Normal inferior vena cava with >50% collapse upon inspiration consistent with normal right atrial pressure, 5 mmHg. Aorta The aortic root size at the sinus of Valsalva is normal. Left Ventricular Outflow Tract Name Value Normal LVOT 2D LVOT Diameter 2.1 cm LVOT Doppler LVOT Peak Velocity 99 cm/s LVOT Peak Gradient 4 mmHg LVOT Mean Gradient 2 mmHg LVOT VTI 22 cm LVOT VTI/AV VTI Ratio 0.8 LVOT Stroke Volume 75 ml LVOT CO 13.5 l/min LVOT CI 7.7 l/min/m2 Pulmonic Valve Name Value Normal PV Doppler PV Peak Velocity 101 cm/s PV Peak Gradient 4 mmHg PV Mean Gradient 3 mmHg PV Regurgitation Doppler NH Peak End Diastolic Velocity 105 cm/s Mitral Valve Name Value Normal MV Doppler MV Peak Gradient 2 mmHg MV Mean Gradient 1 mmHg MV Area (Cont Eq VTI) 3.9 cm2 MV Diastolic Function MV E Peak Velocity 69 cm/s MV A Peak Velocity 62 cm/s MV E/A 1.1 MV Decel Time (PW) 157 ms MV Annular TDI MV E/e' (Septal) 12.7 MV E/e' (Lateral) 7.0 MV E/e' (Average) 9.9 Tricuspid Valve Name Value Normal TV Regurgitation Doppler TR Peak Velocity 339 cm/s TR Peak Gradient 46 mmHg Estimated PAP/RSVP RA Pressure 5 mmHg <=5 PA Systolic Pressure 51 mmHg <36 RV Systolic Pressure 51 mmHg <36 TV Annular TDI TV Lateral Lexis s' Velocity 14.2 cm/s >=9.5 Aortic Valve Name Value Normal AV Doppler AV Peak Velocity 129 cm/s AV Peak Gradient 7 mmHg AV Mean Gradient 4 mmHg AV VTI 27 cm AV Area (Cont Eq VTI) 2.8 cm2 >=3.0 AV Area (Cont Eq Aly) 2.6 cm2 AV DI (Aly) 0.77 AV Regurgitation 2D LVOT Area 3.3 cm2 Ventricles Name Value Normal LV Dimensions 2D/MM IVS Diastolic Thickness (2D) 1.3 cm 0.6-1.0 LVID Diastole (2D) 3.5 cm 3.8-5.2 LVIW Diastolic Thickness (2D) 1.0 cm 0.6-0.9 LVID Systole (2D) 2.4 cm 2.2-3.5 LVOT Diameter 2.1 cm LV Mass (2D Cubed) 120.61 g 67.00-162.00 LV Mass Index (2D Cubed) 69 g/m2 43-95 Relative Wall Thickness (2D) 0.55 <=0.42 LV Fractional Shortening/Ejection Fraction 2D/MM LV Fractional Shortening (2D) 32 % 27-45 LV EF (2D Teichfredericz) 61 % LV Diastolic Volume (4C MOD) 50 ml LV EF (4C MOD) 66 % LV Diastolic Length (4C) 6.9 cm LV Systolic Length (4C) 5.1 cm LV Stroke Volume (4C MOD) 33 ml Atria Name Value Normal LA Dimensions LA Volume (4C A-L) 52 ml LA Volume (BP A-L) 48 ml RA Dimensions RA Systolic Major [place] Length (4C) 4.8 cm 2.2-2.8 RA Area (4C) 14.9 cm2 <=18.0 Report Signatures
== END 2025-04-14 13:28 | disposition home or self-care (01) ==
PROVIDERS: PCP Family Medicine; Visit Provider Physician Assistant
DX: R93.1 Abnormal findings on diagnostic imaging of heart and coronary circulation (principal); R07.9 Chest pain, unspecified; I51.7 Cardiomegaly; R94.31 Abnormal electrocardiogram [ECG] [EKG]; R01.1 Cardiac murmur, unspecified
CPT/HCPCS: 93306

== ENCOUNTER 2025-06-23 07:34 | Outpatient (CLI) | payer OTHER, SELFPAY ==
--- NOTE | ~2025-06-23 | DEXA_ITS ---
Bone Density Report Name: IMAN BURNS Age: 80 Sex: Female Ethnicity: White Date of : 1945 Indication: osteopenia; parental hip fracture; height loss; Referring Provider: NOEMI BEDOLLA Study: Bone densitometry was performed. Exam Date: June 23, 2025 Accession number: [id number] Bone Density: Region BMD T-score Z-score Classification AP Spine(L1, L2, L3) 0.965 -0.5 2.2 Normal Femoral Neck (Left) 0.700 -1.3 1.0 Osteopenia Total Hip (Left) 0.761 -1.5 0.7 Osteopenia Femoral Neck (Right) 0.746 -0.9 1.4 Normal Total Hip (Right) 0.753 -1.5 0.6 Osteopenia Total Hip Mean 0.757 -1.5 0.7 Osteopenia World Health Organization criteria for BMD impression classify patients as: Normal (T-score at or above -1.0), Osteopenia (T-score between -1.0 and -2.5), or Osteoporosis (T-score at or below -2.5). 10-year Fracture Risk(1): Major Osteoporotic Fracture 23% Hip Fracture 13% Reported Risk Factors: [place] (), Neck BMD=0.700, BMI=25.3, parental fracture (1) FRAX(R) Version 3.08. Fracture probability calculated for an untreated patient. Fracture probability may be lower if the patient has received treatment. Previous Exams: Region Exam Age BMD T-score BMD Change BMD Change Date g/cm2 vs Baseline vs Previous AP Spine (L1-L3) 06/23/2025 80 0.965 -0.5 0.065 (7.3%)* 0.081 (9.1%)* 05/07/2022 77 0.884 -1.2 -0.015 (-1.7%) -0.021 (-2.3%) 09/12/2018 73 0.905 -1.0 0.006 (0.7%) 0.006 (0.7%) 08/05/2016 71 0.899 -1.1 Total Hip(Left) 06/23/2025 80 0.761 -1.5 -0.044 (-5.5%) -0.005 (-0.7%) 05/07/2022 77 0.766 -1.4 -0.039 (-4.8%) -0.132 (-14.7% 09/12/2018 73 0.898 -0.4 0.093 (11.6%)* 0.093 (11.6%)* 08/05/2016 71 0.805 -1.1 Total Hip(Right) 06/23/2025 80 0.753 -1.5 -0.086 (-10.2% -0.050 (-6.3%) 05/07/2022 77 0.803 -1.1 -0.036 (-4.3%) -0.112 (-12.2% 09/12/2018 73 0.915 -0.2 0.076 (9.1%)* 0.076 (9.1%)* 08/05/2016 71 0.839 -0.8 *Denotes significance at 95% confidence level, LSC for AP Spine = 0.022 g/cm2, LSC for Total Hip = 0.027 g/cm2 Clinical Information Provided by Patient: Parent has had a hip fracture Has used the following medications: Vitamin D, Calcium Patient maximum height was 66 Menopause Age: 49 Drinks caffeinated beverages Onset of menses at age 11 Number of children 3 Impression: The patient has low bone mass, based on the Left Total Hip T-score. The patient has an estimated ten-year risk of hip fracture of 13% and an estimated ten-year risk of major fracture of 23%, based on the WHO FRAX algorithm. The patient has risk factors, including: parental hip fracture. The BMD for the Total Hip(Right) decreased, changing by -6.3% since the last DXA exam. Discussion: BONE DENSITY IS LOW AT ONE OR MORE SKELETAL SITES. THE PATIENT'S BMD AND CLINICAL RISK FACTORS CONTRIBUTE TO THIS PATIENT'S HIGH RISK OF FRACTURE. This patient's lowest T-score is low at one or more skeletal sites. It meets the World Health Organization's (WHO) criteria for ?low bone mass? (T-score between -1.0 and -2.5). The patient's 10-year risk of hip fracture and 10 year risk of a major osteoporotic fracture as calculated by FRAX exceeds the threshold where pharmacological therapy is recommended by the National Osteoporosis Foundation (NOF). However, all treatment decisions require clinical judgment and consideration of individual patient factors, including patient preferences, comorbidities, previous drug use, risk factors not captured in the FRAX model (e.g., frailty, falls, vitamin D deficiency, increased bone turnover, interval significant decline in bone density) and possible under or overestimation of fracture risk by FRAX. The patient should follow a healthful lifestyle (good nutrition with adequate calcium and vitamin D, and appropriate weight-bearing exercise). Follow-Up: Consider a repeat BMD and Vertebral Fracture Assessment (VFA) exam in 2 years or sooner if medically necessary, to reassess this patient's status. Reported by: RAYNA on 06/23/2025 8:42:00 AM. Reviewed, dictated and finalized at location A.
--- NOTE | ~2025-06-23 | MM_ITS ---
EXAMINATION: MM screening simon BI w mirta HISTORY: Screening TECHNIQUE: Craniocaudal and mediolateral oblique 3-D tomosynthesis images were obtained and synthetic 2-D images were generated. CAD analysis was submitted and interpreted. COMPARISON: Comparison to multiple prior studies sequentially, with oldest reviewed study dated , 08/05/2016 BREAST PARENCHYMAL COMPOSITION: There are scattered areas of fibroglandular density. FINDINGS: There is no evidence of suspicious mass, calcification, or architectural distortion to suggest malignancy in either breast. IMPRESSION: 1. No mammographic evidence of malignancy. 2. Recommend routine screening mammography in one year. BI-RADS Category 1: Negative Reviewed, dictated and finalized at location B. E [employer]ACH[employer]
--- OUTSIDE RECORDS SUMMARY | 2025-06-23 16:32 | XMS_ITS | Clinical Summary ---
Author Organization [facility] Address [address] [place] [address] Care Team Providers Care Instruction Librarian Name Role Phone Ayden Olea MD Primary Care Provider [phone] Social History Tobacco Use Types Packs/Day Years [...] 05/13/2018 03/18/2018, 11/16 COVID-19 Vaccine ( season) 2025 05/29/2023, 09/22/2022, 01/03/2022, Additional history exists Influenza Adult (#1) 2025 04/27/2018, 05/15/2017, 05/19/2016, Additional history exists Pneumococcal Vaccine: 50+ Years Completed 06/08/2014, 05/27/2013 RSV Immunization or 60+ Years Completed 05/29/2023 Hepatitis A Vaccines Aged Out No long er eligible based on patient's age to complete this topic Meningococcal B Vaccine Aged Out No l onger eligible based on patient's age to complete this topic Meningococcal Vaccine Aged Out No alexia charmaine eligible based on patient's age to complete this topic RSV Immunizations Under 20 Months Aged Out No longer eligible based on patient's age to complete this topic Insurance ESSENCE Care Teams Instruction Librarian Relationship Specialty Start Date End Date Ayden Olea MD [address] [place], [place] [id number] PCP - General FAMILY PRACTICE 01/17/24
--- OUTSIDE RECORDS SUMMARY | 2025-06-23 16:32 | XMS_ITS | Clinical Summary ---
Author Organization [facility] Address [address] [place] [address] Care Team Providers Care Racing Manager Name Role Phone Ayden Olea MD Primary Care Provider Allergies Active Allergy Reactions Criticality Noted Date Comments Iodine Rash Medium 04/12/2025 Latex Rash Medium 04/12/2025 Medications tolterodine LA (DETROL LA) 2 mg 24 hr capsule Take 2 mg by mouth daily. Active fish bxd-uromn-5-vit C-vit E 2,000-650-12 mg/2.5 gram emulsion in [...] 1 capsule (120 mg total) by mouth nightly 30 capsule 11 06/01/20 25 Active dilTIAZem XR (CARDIZEM CD,DILACOR XR) 240 mg 24 hr capsule Take 1 capsule (240 mg total) by mouth daily 30 capsule 11 06/01/20 25 Active dilTIAZem CD/XR/XT (CARDIZEM CD,DILACOR XR) 240 mg 24 hr capsule Take 1 capsule (240 mg total) by mouth daily 30 capsule 11 05/13/20 25 025 Discontin ued(Reord er) Active Problems Problem Noted Date Diagnosed Date Nausea & vomiting 10/17/2018 Assessment & Plan (10/18/2018 9:45 AM MEDICAL ADVISOR): - 2/2 viral illness and constipation as above. - Improved today with PRNs. - Bowel regimen as above. - Conservative management for EBV. - Zofran PRN for nausea, IVF with NS for volume repletion ongoing. Assessment & Plan (10/17/2018 11:00 AM MEDICAL ADVISOR): - She presents with five days of nausea and vomiting and was found to have marked LFT abnormalities as discussed above. A viral cause is most likely (HIV and acute hepatitis and respiratory viral penal negative). US WNL, autoimmune workup pending. Blood cultures sent at [facility], these will be followed. - EBV panel, CMV serologies, MALLORY screen pending. - She is not having BMs, so stool studies cancelled. Will send if she develops diarrhea. - Hepatology consult pending. - Zofran PRN for nausea, IVF with NS for volume repletion ongoing. Assessment & Plan (10/17/2018 1:32 AM MEDICAL ADVISOR): She presents with five days of nausea [...] obvious culprit medications. -Blood cultures sent at [facility], follow-up -Send repeat basic labs including hepatic [...] 10/17/2018 Assessment & Plan (10/18/2018 9:44 AM MEDICAL ADVISOR): - Her sodium is improved to 134, she had hypovolemic hyponatremia that is resolving with fluids and PO. - Emesis improved. - Stop IV fluids. Assessment & Plan (10/17/2018 10:56 AM MEDICAL ADVISOR): - Her sodium is 128, hypovolemic hyponatremia based on her recent emesis. - Emesis improved. Na improved to 133 with fluids. ADAT. - Continue IVF NS at 125 cc/hour. Recheck BMP tonight. Assessment & Plan (10/17/2018 1:27 AM MEDICAL ADVISOR): Her sodium is 128, almost certainly hypovolemic hyponatremia based on her history. -IVF with NS at 125 cc/hour for now, trend BMP Essential hypertension 10/17/2018 Assessment & Plan (10/18/2018 9:43 AM MEDICAL ADVISOR): - Hold home HCTZ 25 mg daily in setting of hypovolemia. Resume before discharge as vitals allow. Assessment & Plan (10/17/2018 10:55 AM MEDICAL ADVISOR): - Hold home HCTZ 25 mg daily in setting of hypovolemia. Resume before discharge as vitals allow. Assessment & Plan (10/17/2018 1:28 AM MEDICAL ADVISOR): Hold home HCTZ 25 mg daily in setting of hypovolemia. Hyperlipidemia 10/17/2018 Assessment & Plan (10/17/2018 1:28 AM MEDICAL ADVISOR): Continue home pravastatin 40 mg daily. Overactive bladder 10/17/2018 Assessment & Plan (10/17/2018 11:00 AM MEDICAL ADVISOR): - Oxybutynin XL 5 mg daily. Assessment & Plan (10/17/2018 1:29 AM MEDICAL ADVISOR): Switch tolterodine LA to oxybutynin XL 5 mg daily. Headache 10/17/2018 Assessment & Plan (10/18/2018 9:43 AM MEDICAL ADVISOR): - 2/2 viral syndrome. Holding NSAIDS. Continue PRN tylenol. Monitor. Assessment & Plan (10/17/2018 10:55 AM MEDICAL ADVISOR): - Improved today. Holding NSAIDS. Monitor. Assessment & Plan (10/17/2018 1:29 AM MEDICAL ADVISOR): She complains of chronic headaches that have been relieved with daily ibuprofen use. -Hold ibuprofen for the moment given the high risk of MAURIZIO in the setting of hypovolemia GERD (gastroesophageal reflux disease) 9 Assessment & Plan (10/18/2018 9:43 AM MEDICAL ADVISOR): - PO PPI. Assessment & Plan (10/17/2018 10:55 AM MEDICAL ADVISOR): - PO PPI. Assessment & Plan (10/17/2018 1:30 AM MEDICAL ADVISOR): Switch home omeprazole to pantoprazole while inpatient. 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 Assessment & Plan (10/17/2018 10:57 AM MEDICAL ADVISOR): - New transaminitis with AST/ALT up to [...] 10/17/2018 Assessment & Plan (10/18/2018 9:43 AM MEDICAL ADVISOR): - Improved PO, but still no BM. - One dose mag citrate today. - Miralax, colace BID, titrate as needed as PO improves. Assessment & Plan (10/17/2018 11:01 AM MEDICAL ADVISOR): - Poor PO, but no BM in 8 days. - Add miralax, continue colace BID, titrate as needed as PO improves. Encounters Date Type Department Care Team Description 06/01/2025 Orders Only [facility] [address] [place] [address] [place] [address] Dawood Gómez MD PhD 05/13/2025 Orders Only [facility] [address] [place] [phone] Dawood Gómez MD PhD 04/14/2025 Orders Only [facility] Scanning, Provider 04/12/2025 11:15 AM CDT Lab [facility] Endocrinology Metabolism and Lipid [address] [place] [phone] SVT (supraventricular tachycardia) 04/12/2025 10:30 AM CDT Office Visit [facility] [address] [place] [phone] Dawood Gómez MD PhD Essential hypertension (Primary Dx); Palpitations; SVT (supraventricular tachycardia) 04/12/2025 Results Follow-Up [facility] [address] [place] [phone] Dawood Gómez MD PhD ECG 12 lead, Magnesium, Basic metabolic panel, TSH 04/05/2025 Telephone [facility] [address] [place] [phone] Aguilaashley New Patient 04/05/2025 Telephone [facility] [address] [place] [phone] Jocelin Cordero from Last 3 Months Surgical [...] on file Legal Sex Female 12:52 AM MEDICAL ADVISOR Gender Identity Not on file Sexual Orientation Not on file Last Filed Vital Signs Vital Sign Reading Time Taken Comments Blood Pressure 152/74 04/12/2025 10:18 AM CDT Pulse 68 04/12/2025 10:18 AM CDT Temperature 37.1 C (98.8 F) 10/18/2018 12:44 PM MEDICAL ADVISOR Respiratory Rate 16 10/18/2018 12:44 PM MEDICAL ADVISOR Oxygen Saturation 99% 04/12/2025 10:18 AM CDT [...] of 3) 05/13/2018 03/18/2018, 11/28 Covid-19 Vaccine (2024-2 6 season) 2025 05/25/2024, 05/29/2023, 09/22/2022, Additional history exists Influenza Vaccine (#1) 2025 , 05/29/2023, 05/01/2022, Additional history exists Pneumococcal vaccine 65+ Completed 06/08/2014, 05/18 Procedures Procedure Name Priority Date/Time Associated Diagnosis Comments CARDIOLOGY DOCUMENT SCAN 04/14/2025 TSH Routine 04/12/2025 11:08 AM CDT SVT (supraventricular tachycardia) BASIC METABOLIC PANEL Routine 04/12/2025 11:08 AM CDT SVT (supraventricular tachycardia) MAGNESIUM Routine 04/12/2025 11:08 AM CDT SVT (supraventricular tachycardia) ECG 12-LEAD Routine 04/12/2025 10:20 AM CDT Essential hypertension from Last 3 Months Results * Cardiology Document Scan (04/14/2025) Anatomical Region Laterality Modality Other us Provider Scanning CV CARDIAC SERVICES PROCEDURES Final Result * TSH (04/12/2025 11:08 AM CDT) TSH (Thyrotropin) 1.66 0.27 - 4.20 uIU/mL [facility] Blood 04/12/2025 11:0 8 AM CDT 04/12/2025 1:02 PM CDT Dawood Gómez MD PhD LAB BLOOD ORDERABLES Fi nal Result [facility] * Magnesium (04/12/2025 11:08 AM CDT) Magnesium 2.1 1.6 - 2.6 mg/dL [facility] Blood 04/12/2025 11:0 8 AM CDT 04/12/2025 1:02 PM CDT Dawood Gómez MD PhD LAB BLOOD ORDERABLES Fi nal Result [facility] * Basic [...] - Final from Last 3 Months Insurance Advance Directives For more information, please contact: [phone] Documents on File Type Date Recorded Patient Rocket Engine Component Mechanic Expl anation ADVANCE DIRECTIVE 10/20/2018 6:12 AM POWER OF MALARIOLOGIST * Full Code (Latest Code Status on File) Date Activated Date Inactivated Comments 10/17/2018 12:59 AM 10/18/2018 7:30 PM Care Teams Racing Manager Relationship Specialty Start Date End Date Ayden Olea MD [address] [facility] [address] [place] [address] PCP - General 10/16/18
--- OUTSIDE RECORDS SUMMARY | 2025-06-23 16:32 | XMS_ITS | Encounter Summary ---
Author Organization [facility] Address [address] [place] [address] Phone Care Team Providers Care Crushed Stone Grader Name Role Phone Ayden Olea MD Primary Care Provider Encounter Details Date Type Department Care Team (Late st Contact Info) Description 04/05/2025 Telephone [facility] Cardiology [address] 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
== END 2025-06-23 07:35 | disposition home or self-care (01) ==
PROVIDERS: PCP Family Medicine; Visit Provider Family Medicine
DX: Z12.31 Encounter for screening mammogram for malignant neoplasm of breast (principal); M85.89 Other specified disorders of bone density and structure, multiple sites; Z78.0 Asymptomatic menopausal state
CPT/HCPCS: 77063; 77067; 77080